=== PATIENT | male | born 1960 | race Caucasian/White ===

== ENCOUNTER → 2016-09-15 | Outpatient (CLI) | payer BC ==
[~2016-09-15] MED LIST: ADVIN25050 INH; ADVIN50/60 INH; ALBINS INH; ALBU18002 PO; ALBUAER INH; AMT50 PO; AZIT250T PO; DOXY-300 PO; FLNIN; GFNSR600 PO; LEVO1TAB35 PO; NRN600 PO; OMEP20TA74 PO; OXGN; PRED20TA PO; PRLSR20 PO; ROFL1TAB5 PO; SNG10 PO; TIOTCAP INH
--- NOTE | 2016-09-15 10:47 | DIAGNOSTIC IMAGING REPORT ---
MRI LUMBAR SPINE W/O CONTRAST CLINICAL HISTORY: Back pain with right leg radiculopathy. TECHNIQUE: Sagittal and axial T1, T2 and STIR images were obtained. Imaging was performed of 0.7 Sydnee open MRI scanner. COMPARISON STUDY: Conventional radiographic evaluation the lumbar spine dated 07/02/2016 OBSERVATIONS: The vertebral bodies and posterior elements appear intact. There is no abnormal bony signal present to suggest a marrow replacement process. L1-2: No disc protrusions or extrusions. No evidence of spinal canal or neural foraminal compromise. L2-3: No disc protrusions or extrusions. No evidence of spinal canal or neural foraminal compromise. L3-4: No disc protrusions or extrusions. No evidence of spinal canal or neural foraminal compromise. L4-5: There is a minimal circumferential disc bulge. There is no significant spinal foraminal stenosis L5-S1: There is a mild circumferential disc bulge. There is no significant spinal or foraminal stenosis. There is a right-sided perineural cyst. The conus medullaris and cauda equina appear normal. IMPRESSION: 1. No focal disc herniations identified. No evidence of significant spinal or foraminal stenosis 2. 1 cm right-sided perineural cyst at the S1 level Electronically signed by: Adan Chambers M.D. 09/15/2016 10:46 AM Dictated Date/Time: 09/15/2016 10:42 AM
== END | disposition home or self-care (01) ==
LOC: C.OPENMRI 08:53
DX: M54.16 Radiculopathy, lumbar region (principal); R20.9 Unspecified disturbances of skin sensation

== ENCOUNTER 2016-10-13 15:32 | Inpatient (IN) | payer BC ==
[~2016-10-13] VITALS: Ht 177.8 cm; Wt 123.6 kg
[~2016-10-13 15:32] MED LIST changes: -ADVIN50/60 INH; -ALBU18002 PO; -AMT50 PO; -AZIT250T PO; -DOXY-300 PO; -LEVO1TAB35 PO; -NRN600 PO; -OMEP20TA74 PO; -OXGN; -ROFL1TAB5 PO
[2016-10-13] MEDS ORDERED: METHYLPREDNISOLONE 125 MG VIAL IV STA (15:48)
--- NOTE | 2016-10-13 15:53 | EMERGENCY ROOM VISIT NOTE ---
History Report prepared by Roman: Luigi Ontiveros Under the Supervision of: Dr. Irwin Cheng M.D. First contact with patient: 15:44 Chief Complaint: SHORTNESS OF BREATH Stated Complaint: SHORTNESS OF BREATH History of Present Illness The patient is a 55 year old male with a history of COPD who presents to the Emergency Room with complaints of worsening shortness of breath that started a few days ago. He also complains of coughing, sweats, chills, hot flashes, and weakness. He was on Azithromycin, but recently was switched to Doxycycline, but it hasn't been helping either. He is an ex-smoker. The patient does not use BiPAP at home, but he has been using albuterol and nebulizer treatments. He denies any chest pain or leg swelling. The patient has not had any recent long car trips. His shortness of breath is better when sitting up. He has no history of blood clots. Source of History: patient Onset: A few days ago Position: other (global - sob) Timing: worsening Modifying Factors (Relieving): other (sitting up) Associated Symptoms: + chills, + cough, + diaphoresis, + weakness, No chest pain Note: Associated symptoms: Hot flashes. Denies leg swelling. Review of Systems See HPI for pertinent positives & negatives. A total of 10 systems reviewed and were otherwise negative. Past Medical & Surgical Medical Problems: (1) COPD (chronic obstructive pulmonary disease) Family History No pertinent family history Social History Smoking Status: Former Smoker Marital Status: Housing Status: lives with family Occupation Status: employed Current/Historical Medications Scheduled Amitriptyline Hcl (Elavil), 50 MG PO HS Fluticasone Prop/Salmeterol (Advair Diskus 500/50 60 Dose), 1 PUFF INH BID Gabapentin (Gabapentin), 600 MG PO DAILY Omeprazole (Ra Omeprazole), 20 MG PO DAILY Oxygen (Oxygen), 3 LITERS NA HS Prednisone (Prednisone), 20 MG PO DIRECTED Roflumilast (Daliresp), 500 MG PO HS Scheduled PRN Albuterol Sulfate (Proair Respiclick), 1 PUFF PO DIRECTED PRN for RESCUE Azithromycin (Zithromax), 250 MG PO 3XWK PRN for RESCUE Doxycycline (Monohydrate) (Doxycycline), 100 MG PO BID PRN for RESCUE Allergies Coded Allergies: Penicillins (Verified Allergy, Severe, Anaphylactic shock, 10/13/16) Physical Exam Vital Signs Date Time Temp Pulse Resp B/P Pulse Ox O2 Delivery O2 Flow Rate FiO2 10/13/16 17:27 108 20 10/13/16 17:22 108 19 10/13/16 17:17 110 17 97 10/13/16 17:12 110 20 99 10/13/16 17:07 110 21 96 10/13/16 17:02 107 14 95 10/13/16 17:00 114/80 10/13/16 16:57 107 18 96 10/13/16 16:52 110 21 96 BiPAP 10/13/16 16:37 104 15 96 BiPAP 10/13/16 16:30 146/104 96 BiPAP 10/13/16 16:22 106 14 98 BiPAP 10/13/16 16:07 105 13 97 BiPAP 10/13/16 16:05 110 98 50 10/13/16 16:05 110 18 98 BiPAP/CPAP 50 10/13/16 16:02 106 14 97 BiPAP 10/13/16 16:00 132/91 10/13/16 15:57 106 21 87 Room Air 10/13/16 15:52 105 18 90 Room Air 10/13/16 15:50 103 10/13/16 15:49 88 Room Air 10/13/16 15:49 88 Room Air 10/13/16 15:48 124/97 10/13/16 15:40 36.6 111 20 120/77 89 Room Air Physical Exam GENERAL: Patient is severely dyspneic appearing and unable to speak longer than short sentences. HEENT: No acute trauma, normocephalic atraumatic, mucous membranes moist, no nasal congestion, no scleral icterus. NECK: No stridor, no adenopathy, no meningismus, trachea is midline. LUNGS: Very tight lung sounds with diffuse wheezing. HEART: Regular rate and rhythm. No murmurs, rubs, gallops appreciated. ABDOMEN: Soft, nontender, bowel sounds positive, no masses appreciated, no peritonitis. BACK: No midline tenderness, no CVA tenderness EXTREMITIES: Normal motion all extremities, no cyanosis, no edema. NEUROLOGIC: Alert and oriented, no acute motor or sensory deficits, no focal weakness, cranial nerves grossly intact. SKIN: No rash, no jaundice, no diaphoresis. Medical Decision & Procedures ER Provider Diagnostic Interpretation: X ray results are stated below per my interpretation and the radiologist's interpretation. CHEST ONE VIEW PORTABLE CLINICAL HISTORY: [facility] dyspnea COMPARISON STUDY: 11/01/2012 FINDINGS: Mild bibasilar parenchymal infiltrates . Mid and upper lungs are considered clear. Chronic fibrotic filter changer the pulmonary disease. IMPRESSION: Emphysematous change with mild bibasilar infiltrative change. Atypical components of congestive failure may be present in similar fashion Electronically signed by: Craig Bryan M.D. 10/13/2016 4:37 PM Dictated Date/Time: 10/13/2016 4:36 PM Laboratory Results 10/13/16 15:58 Red Blood Count 5.58, Mean Corpuscular Volume 90.7, Mean Corpuscular Hemoglobin 31.4, Mean Corpuscular Hemoglobin Concent 34.6, Mean Platelet Volume 11.7, Neutrophils (%) (Auto) 59.0, Lymphocytes (%) (Auto) 20.2, Monocytes (%) (Auto) 18.1, Eosinophils (%) (Auto) 2.2, Basophils (%) (Auto) 0.3, Neutrophils # (Auto ) 3.74, Lymphocytes # (Auto) 1.28, Monocytes # (Auto) 1.15, Eosinophils # (Auto ) 0.14, Basophils # (Auto) 0.02 10/13/16 15:58 Test 10/13/16 15:58 10/13/16 16:08 White Blood Count 6.34 K/uL (4.8-10.8) Red Blood Count 5.58 M/uL (4.7-6.1) Hemoglobin 17.5 g/dL (14.0-18.0) Hematocrit 50.6 % (42-52) Mean Corpuscular Volume 90.7 fL (80-100) Mean Corpuscular Hemoglobin 31.4 pg (25-34) Mean Corpuscular Hemoglobin Concent 34.6 g/dl (32-36) Platelet Count 126 K/uL (130-400) Mean Platelet Volume 11.7 fL (7.4-10.4) Neutrophils (%) (Auto) 59.0 % Lymphocytes (%) (Auto) 20.2 % Monocytes (%) (Auto) 18.1 % Eosinophils (%) (Auto) 2.2 % Basophils (%) (Auto) 0.3 % Neutrophils # (Auto) 3.74 K/uL (1.4-6.5) Lymphocytes # (Auto) 1.28 K/uL (1.2-3.4) Monocytes # (Auto) 1.15 K/uL (0.11-0.59) Eosinophils # (Auto) 0.14 K/uL (0-0.5) Basophils # (Auto) 0.02 K/uL (0-0.2) RDW Standard Deviation 45.6 fL (36.4-46.3) RDW Coefficient of Variation 13.7 % (11.5-14.5) Immature Granulocyte % (Auto) 0.2 % Immature Granulocyte # (Auto) 0.01 K/uL (0.00-0.02) Prothrombin Time 11.1 SECONDS (9.0-12.0) Prothromb Time International Ratio 1.0 (0.9-1.1) Activated Partial Thromboplast Time 32.0 SECONDS (21.0-31.0) Partial Thromboplastin Ratio 1.2 Anion Gap 10.0 mmol/L (3-11) Est Creatinine Clear Calc Drug Dose 135.4 ml/min Estimated GFR () 114.9 Estimated GFR (Non- 99.2 BUN/Creatinine Ratio 16.3 (10-20) Calcium Level 9.1 mg/dl (8.5-10.1) Total Creatine Kinase 91 U/L (39-308) Creatine Kinase MB 0.6 ng/ml (0.5-3.6) Creatine Kinase MB Ratio 0.7 (0-3.0) Troponin I < 0.015 ng/ml (0-0.045) Chemistry Specimen Hemolysis Venous Blood pH 7.43 (7.36-7.41) Venous Blood Partial Pressure CO2 44 mmHg (38.0-50.0) Venous Blood Partial Pressure O2 110 mmHg Venous Blood HCO3 28 mmol/L Venous Blood Oxygen Saturation 98.2 % Venous Blood Base Excess 3.3 mmol/L Laboratory results as reviewed by me. Medications Administered Medications (Trade) Dose Ordered Sig/Cole Route Start Time Stop Time Status Last Admin Dose Admin Albuterol/ Ipratropium (Duoneb) 12 ml ONE ONCE INH 10/13/16 16:00 10/13/16 16:01 DC 10/13/16 16:05 12 ML Methylprednisolone Sodium Succinate (Solu-Medrol IV) 125 mg NOW STAT IV 10/13/16 15:48 10/13/16 15:50 DC 10/13/16 16:06 125 MG Levofloxacin (Levaquin / D5W) 750 mg NOW STAT IV 10/13/16 16:58 10/13/16 16:59 DC 10/13/16 17:10 750 MG ECG Indication: SOB/dyspnea Rate (beats per minute): 104 Rhythm: sinus tachycardia Findings: no acute ischemic change, no ectopy ED Course 1544: The patient was evaluated in room A10. A complete history and physical exam was performed. 1548: Ordered Solu-Medrol IV 125 mg IV. 1600: Ordered Duoneb 12 ml INH. 1649: Upon reevaluation, the patient is feeling better on BiPAP, and has much improved air flow to his lungs, but his wheezing has increased. Discussed results and treatment plan with the patient. He verbalized understanding and agreement with the treatment plan. The patient will be evaluated for further management. I am paging Gabriela Veleztany. 1657: I discussed the patient with Dr. Pan SHELBY hospitalist - he will evaluate the patient for further treatment. Medical Decision Differential: Infectious, Reactive Airway Disease, Pneumonia, Pneumothorax, COPD , CHF, ACS, Pulmonary Embolism, MSK, GI, Dissection, amongst other etiologies entertained. 55 yr old male with long history of COPD arrives severely SHOB in significant distress. He is having significantly difficulty catching breath. He was immediately started on BiPAP, continuous neb, IV steroids. He has questionable pneumonia and thus will start on ABX. No evidence of cardiac involvement nor dissection. He is not acidotic and is doing quite well on BiPAP. After hour he is breathing improved though still requiring BiPAP. Stable throughout. Will need to come in for further work-up and evaluation. Consults Time Called: 1649 Consulting Physician: Dr. Pan SHELBY hospitalist Returned Call: 1657 I discussed the patient with Dr. Pan SHELBY hospitalist - he will evaluate the patient for further treatment. Impression Primary Impression: COPD exacerbation Additional Impressions: Respiratory failure PNA (pneumonia) Critical Care I have personally spent greater than 35 minutes of critical care time in the direct management of this patient. This was a life/limb threatening event. This includes time spent evaluating patient, direct bedside care, chart review, placing orders, interpretation of diagnostic studies, discussion with consultants, patient, and family members, as well as other required patient management activities. This 35 minutes is in excess of all separately billable procedures. Scribe Attestation The scribe's documentation has been prepared under my direction and personally reviewed by me in its entirety. I confirm that the note above accurately reflects all work, treatment, procedures, and medical decision making performed by me. Departure Information Dispostion Being Evaluated By Hospitalist Roque Bermudez Jr,D.O. (PCP) Patient Instructions My [facility] Problem Qualifiers Additional Impressions: Respiratory failure Chronicity: acute Respiratory failure complication: hypoxia Qualified Codes : J96.01 - Acute respiratory failure with hypoxia PNA (pneumonia) Pneumonia type: due to unspecified organism Laterality: unspecified laterality Lung location: unspecified part of lung Qualified Codes: J18.9 - Pneumonia, unspecified organism
[2016-10-13] MEDS ORDERED: ALBUT/IPRATROP 3MG/0.5MG NEB 3 ML VIAL INH ONE (16:00)
[2016-10-13 16:05] VITALS: PULSE 110; O2SAT 98
[2016-10-13 16:19] LABS: BASO % 0.3 %; BASO ABS # 0.02 K/uL (0-0.2); COMPLETE YES; EOS % 2.2 %; HEMATOCRIT 50.6 % (42-52); IG% 0.2 %; LYMPH % 20.2 %; LYMPH ABS # 1.28 K/uL (1.2-3.4); MEAN CELL VOLUME 90.7 fL (80-100); MEAN CORPUSCULAR HEMOGLOBIN 31.4 pg (25-34); MEAN CORPUSCULAR HGB CONC 34.6 g/dl (32-36); MEAN PLATELET VOLUME 11.7 fL (7.4-10.4); MONO % 18.1 %; PLATELET COUNT 126 K/uL (130-400); RED BLOOD COUNT 5.58 M/uL (4.7-6.1); WHITE BLOOD COUNT 6.34 K/uL (4.8-10.8)
[2016-10-13] MEDS ORDERED: DOXY-300 PO (16:21)
[2016-10-13] MEDS ORDERED: NRN600 PO (16:21)
[2016-10-13] MEDS ORDERED: AMT50 PO (16:21)
[2016-10-13] MEDS ORDERED: ALBU18002 PO (16:21)
[2016-10-13] MEDS ORDERED: PRED20TA PO (16:21)
[2016-10-13] MEDS ORDERED: AZIT250T PO (16:21)
[2016-10-13] MEDS ORDERED: OXGN (16:21)
[2016-10-13] MEDS ORDERED: ADVIN50/60 INH (16:21)
[2016-10-13] MEDS ORDERED: ROFL1TAB5 PO (16:21)
[2016-10-13] MEDS ORDERED: OMEP20TA74 PO (16:21)
[2016-10-13 16:22] LABS: VEN BLD GAS O2 SATURATION 98.2 %; VEN BLOOD GAS BASE EXCESS 3.3 mmol/L
--- NOTE | 2016-10-13 16:38 | DIAGNOSTIC IMAGING REPORT ---
CHEST ONE VIEW PORTABLE CLINICAL HISTORY: [facility] dyspnea COMPARISON STUDY: 11/01/2012 FINDINGS: Mild bibasilar parenchymal infiltrates . Mid and upper lungs are considered clear. Chronic fibrotic change management manager the pulmonary disease. IMPRESSION: Emphysematous change with mild bibasilar infiltrative change. Atypical components of congestive failure may be present in similar fashion Electronically signed by: Craig Bryan M.D. 10/13/2016 4:37 PM Dictated Date/Time: 10/13/2016 4:36 PM
[2016-10-13 16:42] LABS: BLOOD UREA NITROGEN 13 mg/dl (7-18); BUN/CREATININE RATIO 16.3 (10-20); CALCIUM 9.1 mg/dl (8.5-10.1); CARBON DIOXIDE 27 mmol/L (21-32); CHLORIDE 105 mmol/L (98-107); CKMB/CK RATIO 0.7 (0-3.0); GLUCOSE 101 mg/dl (70-99); POTASSIUM 3.5 mmol/L (3.5-5.1); SODIUM 142 mmol/L (136-145)
[2016-10-13] MEDS ORDERED: LEVAQUIN 750MG / 150ML D5W IV STA (16:58)
[2016-10-13] MEDS ORDERED: ONDANSETRON INJ 2 MG/ML 2 ML VIAL IV PRN (17:30)
[2016-10-13] MEDS ORDERED: ACETAMINOPHEN 325 MG TAB PO PRN (17:30)
[2016-10-13] MEDS ORDERED: ALUMINUM/MAGNESIUM/SIMETH (MAALOX MAX) 30 ML UDC PO PRN (17:30)
[2016-10-13 18:02] LABS: PARTIAL THROMBOPLASTIN RATIO 1.2; PROTHROMBIN TIME (PATIENT) 11.1 SECONDS (9.0-12.0)
--- NOTE | 2016-10-13 18:42 | History and Physical ---
History & Physical Date & Time of Service: Oct 13, 2016 at 18:34 Chief Complaint: Shortness Of Breath Primary Care Physician: Roque Marie Jr,D.O. History of Present Illness Source: patient Pt is a 55 yo male with a hx of COPD who presents to the ER with complaints of worsening SOB that started a few days ago. He reports dyspnea on rest and exertion and also cough and general malaise. Pt has been on chronic azithromycin for recurrent URI for past yr, and reports he is given doxycycline to take when infections are severe. He reports no relief with these antibx in past few days. Denies any fevers or chills. 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 No further medical hx. Pt was a ppd smoker but quit 20 yrs ago. He denies any chest pain or leg swelling. The patient has not had any recent long car trips. His shortness of breath is better when sitting up. He has no history of blood clots. Past Medical/Surgical History Medical Problems: (1) COPD (chronic obstructive pulmonary disease) Status: Chronic Family History No pertinent family history Social History Smoking Status: Former Smoker Smokeless Tobacco Use: No Drug Use: none Marital Status: Occupational Status: employed Immunizations History of Influenza Vaccine: No History of Tetanus Vaccine?: Unknown History of Pneumococcal: No History of Hepatitis B Vaccine: No Multi-Drug Resistant Organisms History of MDRO: No Allergies Coded Allergies: Penicillins (Verified Allergy, Severe, Anaphylactic shock, 10/13/16) Home Medications Scheduled Amitriptyline Hcl (Elavil), 50 MG PO HS Fluticasone Prop/Salmeterol (Advair Diskus 500/50 60 Dose), 1 PUFF INH BID Gabapentin (Gabapentin), 600 MG PO DAILY Omeprazole (Ra Omeprazole), 20 MG PO DAILY Oxygen (Oxygen), 3 LITERS NA HS Prednisone (Prednisone), 20 MG PO DIRECTED Roflumilast (Daliresp), 500 MG PO HS Scheduled PRN Albuterol Sulfate (Proair Respiclick), 1 PUFF PO DIRECTED PRN for RESCUE Azithromycin (Zithromax), 250 MG PO 3XWK PRN for RESCUE Doxycycline (Monohydrate) (Doxycycline), 100 MG PO BID PRN for RESCUE Review of Systems Constitutional: + fatigue, + weakness, No chills, No fever Respiratory: + cough, + dyspnea on exertion, + shortness of breath, + sputum, + wheezing Cardiovascular: No chest pain, No edema, No orthopnea Abdomen: No diarrhea, No nausea, No pain, No vomiting Musculoskeletal: No joint pain, No muscle pain Genitourinary - Male: No dysuria, No hematuria, No urinary frequency Psychiatric: No anhedonism, No depression symptoms Allergic / Immunologic: + environmental allergies, + seasonal allergies Physical Exam Vital Signs Date Time Temp Pulse Resp B/P Pulse Ox O2 Delivery O2 Flow Rate FiO2 10/13/16 16:52 110 21 96 BiPAP 10/13/16 16:37 104 15 96 BiPAP 10/13/16 16:30 146/104 96 BiPAP 10/13/16 16:22 106 14 98 BiPAP 10/13/16 16:07 105 13 97 BiPAP 10/13/16 16:05 110 98 50 10/13/16 16:05 110 18 98 BiPAP/CPAP 50 10/13/16 16:02 106 14 97 BiPAP 10/13/16 16:00 132/91 10/13/16 15:57 106 21 87 Room Air 10/13/16 15:52 105 18 90 Room Air 10/13/16 15:50 103 10/13/16 15:49 88 Room Air 10/13/16 15:49 88 Room Air 10/13/16 15:48 124/97 10/13/16 15:40 36.6 111 20 120/77 89 Room Air General Appearance: WD/WN, + mild distress, + obese Eyes: normal inspection, PERRL Neck: supple, no adenopathy Respiratory/Chest: + decreased breath sounds, + wheezing Cardiovascular: no gallop, no JVD Abdomen/GI: non tender, soft Neurologic/Psych: alert, normal mood/affect, oriented x 3 Diagnostics Laboratory Results Results Past 24 Hours Test 10/13/16 15:58 10/13/16 16:08 Range/Units White Blood Count 6.34 4.8-10.8 K/uL Red Blood Count 5.58 4.7-6.1 M/uL Hemoglobin 17.5 14.0-18.0 g/dL Hematocrit 50.6 42-52 % Mean Corpuscular Volume 90.7 80-100 fL Mean Corpuscular Hemoglobin 31.4 25-34 pg Mean Corpuscular Hemoglobin Concent 34.6 32-36 g/dl Platelet Count 126 130-400 K/uL Mean Platelet Volume 11.7 7.4-10.4 fL Neutrophils (%) (Auto) 59.0 % Lymphocytes (%) (Auto) 20.2 % Monocytes (%) (Auto) 18.1 % Eosinophils (%) (Auto) 2.2 % Basophils (%) (Auto) 0.3 % Neutrophils # (Auto) 3.74 1.4-6.5 K/uL Lymphocytes # (Auto) 1.28 1.2-3.4 K/uL Monocytes # (Auto) 1.15 0.11-0.59 K/uL Eosinophils # (Auto) 0.14 0-0.5 K/uL Basophils # (Auto) 0.02 0-0.2 K/uL RDW Standard Deviation 45.6 36.4-46.3 fL RDW Coefficient of Variation 13.7 11.5-14.5 % Immature Granulocyte % (Auto) 0.2 % Immature Granulocyte # (Auto) 0.01 0.00-0.02 K/uL Prothrombin Time 11.1 9.0-12.0 SECONDS Prothromb Time International Ratio 1.0 0.9-1.1 Activated Partial Thromboplast Time 32.0 21.0-31.0 SECONDS Partial Thromboplastin Ratio 1.2 Sodium Level 142 136-145 mmol/L Potassium Level 3.5 3.5-5.1 mmol/L Chloride Level 105 98-107 mmol/L Carbon Dioxide Level 27 21-32 mmol/L Anion Gap 10.0 3-11 mmol/L Blood Urea Nitrogen 13 7-18 mg/dl Creatinine 0.80 0.60-1.40 mg/dl Est Creatinine Clear Calc Drug Dose 135.4 ml/min Estimated GFR () 114.9 Estimated GFR (Non- 99.2 BUN/Creatinine Ratio 16.3 10-20 Random Glucose 101 70-99 mg/dl Calcium Level 9.1 8.5-10.1 mg/dl Total Creatine Kinase 91 39-308 U/L Creatine Kinase MB 0.6 0.5-3.6 ng/ml Creatine Kinase MB Ratio 0.7 0-3.0 Troponin I < 0.015 0-0.045 ng/ml Chemistry Specimen Hemolysis Venous Blood pH 7.43 7.36-7.41 Venous Blood Partial Pressure CO2 44 38.0-50.0 mmHg Venous Blood Partial Pressure O2 110 mmHg Venous Blood HCO3 28 mmol/L Venous Blood Oxygen Saturation 98.2 % Venous Blood Base Excess 3.3 mmol/L Microbiology Results 10/13/16 Blood Culture, Received Pending 10/13/16 Blood Culture, Received Pending Impression Assessment and Plan Pt is a 55 yo male with hx of COPD who presents with worsening sob x 3 days COPD exacerbation - Pt was on BiPAP in ER but VBG and O2 sats normalizing. Can likely wean off shortly. Cont advair and daliresp and duonebs at this time. Will also start on IV solumedrol 60 mg q 8 hrs. CXR bibasilar infiltrates noted, will also start on levaquin 750 mg IV daily. Pt report PFTs in past month. Lumbar radiculopathy - Cont gabapentin Hx of seasonal Allergies Pt is FULL CODE VTE Prophylaxis VTE Risk Assessment Done? Y/N: Yes Risk Level: Moderate
[2016-10-13 19:52] VITALS: Ht 177.8 cm; Wt 123.6 kg
[2016-10-13 19:54] VITALS: BP 133/85; PULSE 77; TEMP 36.5; O2SAT 94
[2016-10-13] MEDS ORDERED: PNEUMOCOCCAL POLYSACCHARIDES 25 MCG/0.5 ML VIAL/SYR IM. ONE (20:15)
[2016-10-13] MEDS ORDERED: PNEUMOCOCCAL ADMINISTRATION CHARGE ONE (20:15)
[2016-10-13] MEDS ORDERED: INFLUENZA VIRUS QUAD VACCINE 0.5 ML SYR IM. ONE (20:15)
[2016-10-13] MEDS ORDERED: INFLUENZA ADMINISTRATION CHARGE ONE (20:15)
[2016-10-13 20:28] VITALS: PULSE 102; O2SAT 92
[2016-10-13] MEDS: ALBUT/IPRATROP 3MG/0.5MG NEB 3 ML VIAL INH SCH (20:28)
[2016-10-13] MEDS: ENOXAPARIN 40 MG/0.4 ML SYR SC SCH (22:27)
[2016-10-13] MEDS: METHYLPREDNISOLONE IV 60 MG in SYRINGE 0 ML IV SCH (22:27)
[2016-10-13] MEDS: ROFLUMILAST 500 MCG TAB PO SCH (22:27)
[2016-10-13] MEDS: AMITRIPTYLINE HCL 50 MG TAB PO SCH (22:28)
[2016-10-13] MEDS: FLUTICASONE/SALMETEROL (ADVAIR) 500/50 INH 14 PUFF INH SCH (22:29)
[2016-10-13 23:42] VITALS: BP 143/85; PULSE 105; TEMP 36.6; O2SAT 91
[2016-10-14] VITALS (12 sets, daily range): BP systolic 115–159; BP diastolic 67–80; PULSE 81–103; TEMP 36.5–37.2; O2SAT 90–94
[2016-10-14] MEDS: METHYLPREDNISOLONE IV 60 MG in SYRINGE 0 ML IV SCH ×3 (06:35→21:08)
[2016-10-14] MEDS: ALBUT/IPRATROP 3MG/0.5MG NEB 3 ML VIAL INH SCH ×4 (07:24→19:36)
--- NOTE | 2016-10-14 07:36 | Family Medicine Progress Note ---
Progress Note Date of Service Oct 14, 2016. Subjective Pt evaluation today including: conversation w/ patient, physical exam, chart review, lab review The patient was seen and examined at bedside. No acute overnight events. Telemetry monitoring showed sinus rhythm in the 80s and 90s. Patient is resting comfortably in bed. Pt is coughing up yellow sputum - this is normal for the pt - pt states that he has had numerous COPD exacerbations over the past few years. 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 Pt has PRN prednisone tabs at home because he has such frequent COPD exacerbation. Considers current exacerbation as "moderate". Pt ate his entire breakfast. ROS: Pt denies fever, hemoptysis, chest pain, SOB, leg swelling, abdominal pain , diarrhea. Plan of care was described to the patient and all questions were answered. Objective Physical Exam General Appearance: WD/WN, no apparent distress, + obese Respiratory/Chest: + pertinent finding (bibasilar crackles in the posterior lung ribeiro, expiratory wheezing in the apical lung ribeiro posteriorly and bilaterally, minimally decreased air movement cosnsistent with mild to moderate COPD. ) Cardiovascular: regular rate, rhythm, no edema, no gallop, no JVD, no murmur Abdomen: normal bowel sounds, non tender, soft, no pulsatile mass Extremities: normal range of motion, non-tender, normal inspection, no pedal edema, no calf tenderness Assessment and Plan Pt is a 55 yo male with hx of COPD who presents with worsening sob x 3 days. Pt takes prophylactic Azithromycin at home (Doxycycline when he's feeling really bad) and has PRN Prednisone (will taper up to 20mg daily and then taper back down). Pt is admitted for COPD exacerbation. COPD exacerbation - O2 sat 94% on 2LNC. Pt feels like he is improving clinically. He routinely wears home oxygen at night. - Pt was on BiPAP in ER but VBG and O2 sats normalizing. - Cont advair and daliresp and duonebs at this time. - c/w IV solumedrol 60 mg q 8hrs. CXR bibasilar infiltrates noted, - c/w levaquin 750 mg IV daily. Lumbar radiculopathy - c/w gabapentin 600mg daily. Mood: c/w Amitriptyline DVT Proph: Lovenox SQ Daily Dispo: Med Surg, regular diet, FULL CODE Resident Physician Supervision Note: I interviewed and examined the patient. Discussed with Dr. Raymond and agree with findings and plan as documented in the note. Any exceptions or clarifications are listed here: None Documented By: Gregorio Gunter feeling better, breathing better vitals noted, nad, breathing unlabored COPD exacerbation due to pneumonia - levaquin, steroids, supportive care improving otehrwise as above Resident Involvement: Resident Care Provided Care Provided: Adult Hospital Medicine
[2016-10-14] MEDS: FLUTICASONE/SALMETEROL (ADVAIR) 500/50 INH 14 PUFF INH SCH (08:07)
[2016-10-14] MEDS: PANTOprazole SOD 40 MG TAB PO SCH (08:08)
[2016-10-14] MEDS: GABAPENTIN 600 MG TAB PO SCH (08:08)
[2016-10-14] MEDS ORDERED: LEVOFLOXACIN / D5W 750 MG in PREMIXED IN D5W 150 ML IV SCH (16:00)
--- NOTE | 2016-10-14 17:33 | Medical Student: [facility] ---
Med Student Progress Note Date of Service Oct 14, 2016. Subjective Pt evaluation today including: conversation w/ patient Voiding: no voiding problems Mr. Avilez is a 55 year old male with past medical history significant for COPD being treated for shortness of breath. Diagnosed with COPD 15 years ago. On daily azithromycin and uses oxygen via nasal canula at night. Notes last hospitalized exacerbation 3-4 years ago. States last PFTs were 'poor'. Currently does not see dairy associate, only follows with allergy. Per nurse no acute events overnight. Today patient states he is feeling better. Notes shortness of breath improved with oxygen 2 L via nasal cannula. He notes no change in productive cough or in large sputum volume. Notes yellow, green, thick appearance with flecks of blood. Denies fever, chills, chest pain, palpitations, lightheadedness, nausea, vomiting. Review of Systems Constitutional: No chills, No fatigue, No fever, No sweats Respiratory: + cough, + shortness of breath, + sputum, No wheezing Cardiac: No chest pain, No palpitations Abdomen: No diarrhea, No nausea, No pain, No vomiting Musculoskeletal: No calf pain, No swelling Male : No dysuria, No urinary frequency Objective Vital Signs Date Time Temp Pulse Resp B/P Pulse Ox O2 Delivery O2 Flow Rate FiO2 10/14/16 16:00 94 Nasal Cannula 2.0 10/14/16 15:56 37.2 101 16 120/71 94 Nasal Cannula 3.0 10/14/16 15:34 103 18 93 Nasal Cannula 2.0 10/14/16 12:00 92 Nasal Cannula 2.0 10/14/16 11:58 101 18 92 Nasal Cannula 2.0 10/14/16 11:25 36.7 99 18 121/77 92 2.0 10/14/16 08:00 94 Nasal Cannula 2.0 10/14/16 07:24 88 18 94 Nasal Cannula 2.0 10/14/16 07:24 36.5 81 16 115/69 93 Nasal Cannula 2.0 10/14/16 04:00 94 Nasal Cannula 2.0 10/14/16 03:47 36.5 97 16 140/67 94 Room Air 10/13/16 23:42 36.6 105 18 143/85 91 Room Air 10/13/16 21:52 36.5 102 18 92 Nasal Cannula 2.0 50 10/13/16 20:28 102 18 92 Nasal Cannula 2.0 10/13/16 19:54 36.5 77 16 133/85 94 10/13/16 19:52 Nasal Cannula 2.0 10/13/16 18:54 36.6 109 13 123/72 98 10/13/16 18:47 109 13 10/13/16 18:42 105 18 10/13/16 18:37 105 22 10/13/16 18:32 107 19 10/13/16 18:30 123/72 98 BiPAP 10/13/16 18:27 107 15 10/13/16 18:22 108 18 10/13/16 18:17 106 18 10/13/16 18:12 109 12 10/13/16 18:07 109 15 10/13/16 18:02 107 17 10/13/16 18:00 130/90 10/13/16 17:57 107 12 10/13/16 17:52 106 20 10/13/16 17:47 109 13 10/13/16 17:42 110 20 10/13/16 17:37 106 15 10/13/16 17:32 107 14 10/13/16 17:29 122/95 10/13/16 17:27 108 20 10/13/16 17:22 108 19 10/13/16 17:17 110 17 97 10/13/16 17:12 110 20 99 Physical Exam General Appearance: WD/WN, + mild distress Neck: supple, no adenopathy, no JVD, no carotid bruits Respiratory/Chest: chest non-tender, no respiratory distress, no accessory muscle use, + crackles (diffuse bibasilar), + wheezing (diffuse bibasilar) Cardiovascular: regular rate, rhythm, no edema, no gallop, no JVD Abdomen: normal bowel sounds, non tender, soft, no organomegaly Extremities: no pedal edema, no calf tenderness Neurologic/Psychiatric: alert, normal mood/affect, oriented x 3 Laboratory Results Test 10/13/16 15:58 10/13/16 16:08 White Blood Count 6.34 Red Blood Count 5.58 Hemoglobin 17.5 Hematocrit 50.6 Mean Corpuscular Volume 90.7 Mean Corpuscular Hemoglobin 31.4 Mean Corpuscular Hemoglobin Concent 34.6 Platelet Count 126 Mean Platelet Volume 11.7 Neutrophils (%) (Auto) 59.0 Lymphocytes (%) (Auto) 20.2 Monocytes (%) (Auto) 18.1 Eosinophils (%) (Auto) 2.2 Basophils (%) (Auto) 0.3 Neutrophils # (Auto) 3.74 Lymphocytes # (Auto) 1.28 Monocytes # (Auto) 1.15 Eosinophils # (Auto) 0.14 Basophils # (Auto) 0.02 RDW Standard Deviation 45.6 RDW Coefficient of Variation 13.7 Immature Granulocyte % (Auto) 0.2 Immature Granulocyte # (Auto) 0.01 Prothrombin Time 11.1 Prothrombin Time INR 1.0 PTT 32.0 Partial Thromboplastin Ratio 1.2 Sodium Level 142 Potassium Level 3.5 Chloride Level 105 Carbon Dioxide Level 27 Anion Gap 10.0 Blood Urea Nitrogen 13 Creatinine 0.80 Est Creatinine Clear Calc Drug Dose 135.4 Estimated GFR () 114.9 Estimated GFR (Non- 99.2 BUN/Creatinine Ratio 16.3 Random Glucose 101 Calcium Level 9.1 Total Creatine Kinase 91 Creatine Kinase MB 0.6 Creatine Kinase MB Ratio 0.7 Troponin I < 0.015 Chemistry Specimen Hemolysis Venous Blood pH 7.43 Venous Blood Partial Pressure CO2 44 Venous Blood Partial Pressure O2 110 Venous Blood HCO3 28 Venous Blood Oxygen Saturation 98.2 Venous Blood Base Excess 3.3 Medications Current Inpatient Medications Medications (Trade) Dose Ordered Sig/Cole Route Start Time Stop Time Status Last Admin Dose Admin Enoxaparin Sodium (Lovenox Inj) 40 mg Q24H SC 10/13/16 21:00 11/12/16 20:59 10/13/16 22:27 40 MG Acetaminophen (Tylenol Tab) 650 mg Q4H PRN PO 10/13/16 17:30 11/12/16 17:29 Al Hydrox/Mg Hydrox/Simethicone (Maalox Max Susp) 15 ml Q4H PRN PO 10/13/16 17:30 11/12/16 17:29 Ondansetron HCl 4 mg 4 mg Q6H PRN IV 10/13/16 17:30 11/12/16 17:29 Levofloxacin/Prmx (Levaquin / D5W/ Premixed D5W) 150 ml @ 100 mls/hr DAILY@1600 IV 10/14/16 16:00 10/23/16 15:59 10/14/16 16:50 100 MLS/HR Albuterol/ Ipratropium (Duoneb) 3 ml QIDR INH 10/13/16 20:00 11/12/16 19:59 10/14/16 15:28 3 ML Amitriptyline HCl (Elavil Tab) 50 mg HS PO 10/13/16 21:00 11/12/16 20:59 10/13/16 22:28 50 MG Salmeterol Xinafoate/ Fluticasone (Advair Diskus 500/50 Inh) 1 puff BID INH 10/13/16 21:00 11/12/16 20:59 10/14/16 08:07 1 PUFF Gabapentin (Neurontin Tab) 600 mg DAILY PO 10/14/16 09:00 11/13/16 08:59 10/14/16 08:08 600 MG Roflumilast (Daliresp Tab) 500 mcg HS PO 10/13/16 21:00 11/12/16 20:59 10/13/16 22:27 500 MCG Pantoprazole Sodium 40 mg 40 mg QAM PO 10/14/16 09:00 11/13/16 08:59 10/14/16 08:08 40 MG Methylprednisolone Sodium Succinate/ Syringe (Solu-Medrol IV/ Syringe) 0.96 ml @ 1.5 mls/min Q8 IV 10/13/16 22:00 11/12/16 21:59 10/14/16 15:16 1.5 MLS/MIN Assessment and Plan Assessment and Plan: Mr. Avilez is a 55 year old male with past medical history significant for COPD who is being treated for shortness of breath. 1. Shortness of breath - Likely COPD exacerbation due to history. Mild bibasilar infiltrates on CXR. Cough, shortness of breath, sputum production and purulence would support exacerbation. However no fever and WBC not elevated at 6.34. Blood cultures pending. - Obtain sputum culture - Treat underlying condition - Continue nebulizers, inhalers 2. Acute on chronic COPD - Last PFT values unknown. Per patient they were very poor. Increase in sputum production and purulence would support exacerbation. On daily azithromycin prophylaxis. Takes doxycycline when more severe. Likely exacerbation gram negative infection. Azithromycin and doxy would cover more gram positives, atypicals, possibly MRSA. - Continue Levaquin 750 mg IV. - Wean off oxygen. Monitor oxygen saturation. Aim for 88-92%. - Continue Advair, Roflumilast, DuoNeb - Coordinate pulmonology follow up 3. Lumbar radiculopathy - Saw neurosurgery in [place]. Cyst in lower back near spinal cord. [place] stated inoperable and referred to pain management. - Continue Amitriptyline and Gabapentin 4. DVT prophylaxis - Continue Lovenox 40 mg SQ q24
[2016-10-14] MEDS: ROFLUMILAST 500 MCG TAB PO SCH (21:07)
[2016-10-14] MEDS: AMITRIPTYLINE HCL 50 MG TAB PO SCH (21:07)
[2016-10-14] MEDS: ENOXAPARIN 40 MG/0.4 ML SYR SC SCH (21:08)
[2016-10-15 00:05] VITALS: BP 138/78; PULSE 95; TEMP 36.6; O2SAT 95
[2016-10-15] MEDS: METHYLPREDNISOLONE IV 60 MG in SYRINGE 0 ML IV SCH (06:30)
[2016-10-15 07:05] VITALS: PULSE 102; O2SAT 92
[2016-10-15] MEDS: ALBUT/IPRATROP 3MG/0.5MG NEB 3 ML VIAL INH SCH ×2 (07:05→11:21)
[2016-10-15 07:40] VITALS: BP 114/79; PULSE 93; TEMP 36; O2SAT 95
[2016-10-15] MEDS: PANTOprazole SOD 40 MG TAB PO SCH (08:18)
[2016-10-15] MEDS: GABAPENTIN 600 MG TAB PO SCH (08:18)
[2016-10-15] MEDS: FLUTICASONE/SALMETEROL (ADVAIR) 500/50 INH 14 PUFF INH SCH (08:22)
[2016-10-15] MEDS ORDERED: PRED20TA PO (09:53)
[2016-10-15] MEDS ORDERED: LEVO1TAB35 PO (09:54)
--- NOTE | 2016-10-15 10:03 | Discharge Instructions ---
Discharge Instructions Date of Service Oct 15, 2016. Admission Reason for Admission: Copd Exacerbation Discharge Discharge Diagnosis / Problem: COPD Exacerbation Discharge Goals Goal(s): Decrease discomfort, Improve function, Improve nutritional status, Learn about illness Activity Recommendations Activity Limitations: resume your previous activity Lifting Limitations: none . Instructions / Follow-Up Instructions / Follow-Up You will be arranged a follow up appointment with Dr. Conrad. Dr. Conrad's office or the hospital briefcase sewer will reach out to you with an appointment within the next 48 hours. If you do not hear from anyone regarding a pulmonology follow up by evening we recommend you reach out to Dr. Conrad independently to schedule a follow up within the next 7 days. We also recommend that you follow up with your PCP within the next 7 days. Medications You have been prescribed a 7 day course of Levofloxacin. We recommend taking this pill daily at 4pm. You should not take your Azithromycin or Doxycycline while taking the Levofloxacin. Once you finish your Levofloxacin you may resume your home antibiotics. You have also been prescribed a course of Prednisone. You received an injection of Solu Medrol the morning if your discharge. When you get home today we recommend that you take two 20mg tablets of Prednisone tonight (40mg total). Your taper will commence with 60mg (3 pills of 20mg) on , 60mg on Thursday, 40mg on Thursday, 40 mg on Thursday, 20 mg on Thursday, 20mg on Thursday. This is a total of 14 pills of 20mg each. We recommend 24hour use of your home oxygen until for at least the first 14 days after discharge. Your supervisor line department might advice you for further use after your first follow up appointment. If you experience any recurrence of your SOB we recommend you return to the ER. Current Hospital Diet Patient's current hospital diet: Regular Diet Discharge Diet Recommended Diet: AHA Diet (Heart Healthy) Pending Studies Studies pending at discharge: no Medical Emergencies . Who to Call and When: Medical Emergencies: If at any time you feel your situation is an emergency, please call 911 immediately. . Non-Emergent Contact Non-Emergency issues call your: Primary Care Provider, Transformer Maker . . "Provider Documentation" section prepared by Craig Raymond. VTE Core Measure Inpt VTE Proph given/why not?: Enoxaparin (Lovenox)SQ Resident Involvement: Resident Care Provided Care Provided: Adult Hospital Medicine
--- NOTE | 2016-10-15 10:15 | Discharge Summary ---
Discharge Summary Date of Service Oct 15, 2016. (Craig Raymond M.D.) Discharge Summary Admission Date: Oct 13, 2016 at 17:27 Discharge Date: Oct 15, 2016 Discharge Disposition: Home Principal Diagnosis: COPD Exacerbation Immunizations: Have You Had Influenza Vaccine: No History of Tetanus Vaccine?: Unknown History of Pneumococcal: No History of Hepatitis B Vaccine: No (Craig Raymond M.D.) Medication Reconciliation New Medications: Levofloxacin (Levaquin) 750 Mg Tab 750 MG PO DAILY for 7 Days, #7 TAB Take at 4pm starting today (Thursday) Changed Medications: Prednisone (Prednisone) 20 Mg Tab 20 MG PO DIRECTED, #14 TAB (Medication details modified) 40mg Thu evening 60mg 60mg Thu 40mg Sat 40mg Sun 20mg Mon 20mg Thu Continued Medications: Albuterol Sulfate (Proair Respiclick) 108 Mcg/Act Aer 1 PUFF PO DIRECTED PRN for RESCUE Amitriptyline Hcl (Elavil) 50 Mg Tab 50 MG PO HS, TAB Azithromycin (Zithromax) 250 Mg Tab 250 MG PO 3XWK PRN for RESCUE, TAB Doxycycline (Monohydrate) (Doxycycline) 100 Mg Cap 100 MG PO BID PRN for RESCUE Fluticasone Prop/Salmeterol (Advair Diskus 500/50 60 Dose) 1 Ea Aerp 1 PUFF INH BID, INHALER Gabapentin (Gabapentin) 600 Mg Tab 600 MG PO DAILY Omeprazole (Ra Omeprazole) 20 Mg Tab 20 MG PO DAILY Oxygen (Oxygen) Gas 3 LITERS NA HS Roflumilast (Daliresp) 500 Mcg Tab 500 MG PO HS, TAB 5 Refills Discharge Exam The patient was seen and examined at bedside. Patient is improving clinically. Says his dyspnea and cough have improved. Patient is resting comfortably in bed. Denies having any chest pain. Eating and urinating well. Plan of care was described to the patient and all questions were answered. Review of Systems: Constitutional: No chills, No fever, No weight loss Cardiovascular: No chest pain Abdomen: No diarrhea, No nausea, No pain, No vomiting Musculoskeletal: No joint pain Physical Exam: General Appearance: WD/WN, no apparent distress, + obese Neck: supple Respiratory/Chest: chest non-tender, lungs clear, normal breath sounds, no respiratory distress, + pertinent finding (Dramatically improved lung sounds in lung bases, slight bibasilar crackles, ) Cardiovascular: regular rate, rhythm, no edema, no gallop, no JVD, no murmur Abdomen / GI: normal bowel sounds, non tender, soft, no organomegaly Extremities: normal inspection, no calf tenderness, no pedal edema Neurologic/Psychiatric: drill operator II-XII nml as tested, alert, normal mood/affect , normal reflexes, oriented x 3 Skin: + pertinent finding (psoriatic skin patches over both elbows) (Craig Raymond M.D.) Hospital Course 55M with hx of COPD who presents with worsening SOB x 3 days. Pt takes prophylactic Azithromycin at home (Doxycycline when he's feeling really bad) and has PRN Prednisone (will taper up to 20mg daily and then taper back down in 5mg increments). Pt is admitted for COPD exacerbation. COPD exacerbation Patient improved clinically on Levofloxacin and IV solumedrol 60mg Q8. Patient was in the hospital for approximately 48 hours. He was discharged on a 7 day course of Levofloxacin and told to hold his home Abx while taking this medication. He was also discharged on a 6 day Prednisone taper from 60mg. We are arranging for follow up with a Home Security Alarm Installer and we are recommending regular use of home oxygen which the patient is only using at night. Patient is a former smoker. We also recommend regular use of home Advair. While in the hospital we continued the patient's Gabapentin which he takes for Lumbar radiculopathy and we continued his Amitriptyline. We also provided DVT Prophylaxis and a regular full diet. Total Time Spent: Greater than 30 minutes This includes examination of the patient, discharge planning, medication reconciliation, and communication with other providers. (Craig Raymond M.D.) Resident Physician Supervision Note: I interviewed and examined the patient. Discussed with Dr. Raymond and agree with findings and plan as documented in the note. Any exceptions or clarifications are listed here: None Documented By: Gregorio Gunter feeling better breathing better. at my arrival pulse ox checked - 87-89% on RA with absolutely no dyspnea (calm, smiling, joking, unlabored breathing) - notes he has O2, portable O2 and pulse ox at home - but mostly only uses O2 HS. discussed hypoxia and that he'd likely do much better keeping pulse ox >90, using O2 more. vitals noted, see EMR. nad, lungs quiet but clear no r/r/w COPD exacerbation w acute on chronic respiratory failure due to pneumonia superimposed on chronic severe COPD -finish levaquin, taper prednisone, set up w pulmonary for ongoing f/u at his request, f/u PCP, use O2 more keep pulse ox >90 -stable for home as above Total Time Spent: Less than 30 minutes (Gregorio Gunter D.Promise.) Discharge Instructions Please refer to the electronic Patient Visit Report (Discharge Instructions) for additional information. (Craig Raymond M.D.) Follow-Up Follow up with PCP within 7 days of discharge. Follow up with Home Security Alarm Installer (the human services case manager is reaching out to make an appointment with Dr. Conrad) within the next few days. (Craig Raymond M.D.) Additional Copies To Roque Marie Jr,D.O.; Odilon Conrad MD Resident Involvement: Resident Care Provided Care Provided: [facility] (Craig Raymond M.D.)
[2016-10-15 11:02] VITALS: BP 114/79; PULSE 93; TEMP 36; O2SAT 95
[2016-10-15 11:21] VITALS: PULSE 97; O2SAT 95
== END 2016-10-15 12:08 | disposition home or self-care (01) | DRG 190 ==
LOC: ENRESERVTM → ENRESERVDT → C.EDB 15:34 → C.MED 17:27 → C.4E 10-14 20:14
PROVIDERS: ADMIT Hospitalist; ATTEND Family Medicine
DX: J44.0 Chronic obstructive pulmonary disease with (acute) lower respiratory infection (principal); J18.9 Pneumonia, unspecified organism; J96.21 Acute and chronic respiratory failure with hypoxia; J44.1 Chronic obstructive pulmonary disease with (acute) exacerbation; Z87.891 Personal history of nicotine dependence; Z88.0 Allergy status to penicillin; M54.16 Radiculopathy, lumbar region

== ENCOUNTER 2018-03-11 12:14 | Emergency (ER) | payer OTHER ==
[~2018-03-11] VITALS: Ht 177.8 cm; Wt 132.0 kg
[~2018-03-11 12:14] MED LIST changes: -ADVIN25050 INH; +ADVIN50/60 INH; -ALBINS INH; +ALBU18002 PO; -ALBUAER INH; +AMT50 PO; +AZIT250T PO; +CYM/30 PO; +DOXY-300 PO; -FLNIN; +GABA-113 PO; -GFNSR600 PO; +OMEP20TA74 PO; +PHEN37.585 PO; -PRLSR20 PO; +ROFL1TAB5 PO; -SNG10 PO; -TIOTCAP INH; +TOPI25TA99 PO
[2018-03-11 12:18] VITALS: TEMP 36.6; Ht 177.8 cm; Wt 132.0 kg
[2018-03-11 12:31] VITALS: O2SAT 92
--- NOTE | 2018-03-11 12:51 | EMERGENCY ROOM VISIT NOTE ---
History Report prepared by Roman: Monserrat Maynard Under the Supervision of: Dr. Luis Felipe Valera M.D. First contact with patient: 12:31 Chief Complaint: RESPIRATORY PROBLEMS Stated Complaint: CANT BREATH History of Present Illness The patient is a 57 year old male who presents to the Emergency Room with complaints of waxing and waning shortness of breath since yesterday. The patient states this shortness of breath feels like a "tightness" all over his chest and it feels "dry and scratchy" in his lungs. He reports that these symptoms feel similar to symptoms he had 1.5 years ago when he came in and was diagnosed with pneumonia. Per the patient's , the patient gets short of breath when walking short distances. The patient states that more recently he has felt more tired and has had recent hot flashes. The patient states that he has had COPD for the past 7 years and is on 3L of oxygen at night. He states that he usually coughs up a large amount of thick fluid, but more recently he has been rarely coughing up any mucus but when he does, it is thin and greenish brown. The patient denies any abdominal pain or symptoms. The patient reports having swollen ankles about a month ago, but states that they no longer are swollen. 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 He states that Dr. Aguero also believes that he has inflammation in his airway and put him on prednisone in July at 20 mg and told the patient to increase the dose as needed. The patient states that he now take about 30 or 40 mg of prednisone each day, but states that he feels it does not help his symptoms much. The patient also states that he has a running order of azithromycin and doxycycline from Dr. Marie for whenever he feels like he has an infection in his lungs. The patient states that he is a previous smoker. Source of History: patient, spouse/significant other Onset: yesterday Position: chest (shortness of breath ) Quality: other ("tightness" and "dry and scratchy" ) Timing: waxes/wanes Modifying Factors (Worsening): exertion Associated Symptoms: + fatigue, No abdominal pain Note: additional symptoms: coughing up thin and greenish brown mucus and hot flashes Review of Systems See HPI for pertinent positives and negatives. A total of ten systems were reviewed and were otherwise negative. Past Medical & Surgical Medical Problems: (1) COPD (chronic obstructive pulmonary disease) Family History No pertinent family history Social History Smoking Status: Never Smoker Drug Use: none Marital Status: Housing Status: lives with family Occupation Status: employed Current/Historical Medications Scheduled Amitriptyline Hcl (Elavil), 50 MG PO HS Doxycycline Hyclate (Vibramycin), 100 MG PO BID Prednisone Tab (Prednisone), 10 MG PO QID Scheduled PRN Albuterol Sulfate (Proair Respiclick), 1 PUFF PO DIRECTED PRN for RESCUE Allergies Coded Allergies: Penicillins (Verified Allergy, Severe, Anaphylactic shock, 03/11/18) Amoxicillin (Unverified Allergy, Unknown, anaphylactic shock, 03/11/18) Physical Exam Vital Signs Date Time Temp Pulse Resp B/P (MAP) Pulse Ox O2 Delivery O2 Flow Rate FiO2 03/11/18 15:00 88 24 152/97 90 03/11/18 13:36 90 19 154/101 93 Nasal Cannula 4.0 03/11/18 12:56 87 Room Air 03/11/18 12:36 88 03/11/18 12:31 87 Room Air 03/11/18 12:31 92 Nasal Cannula 4.0 03/11/18 12:18 36.6 89 18 134/74 91 Room Air Physical Exam GENERAL: Awake, alert, well-appearing, in no distress. Barrel-chested. Obese abdomen. HENT: Normocephalic, atraumatic. Oropharynx unremarkable. EYES: Normal conjunctiva. Sclera non-icteric. NECK: Supple. No nuchal rigidity. RESPIRATORY: Slight expiratory wheeze. CARDIAC: Normal rate. Normal rhythm. Extremities warm and well perfused. GI: Soft, non-distended. No tenderness to palpation. No rebound or guarding. No masses. RECTAL: Deferred. MUSCULOSKELETAL: Atraumatic. Chest examination reveals no tenderness. There is no CVA tenderness to palpation. LOWER EXTREMITIES: Calves are equal size bilaterally and non-tender. No edema NEURO: Normal sensorium. No sensory or motor deficits noted. No facial droop. SKIN: Warm and dry. No rash or jaundice noted. Medical Decision & Procedures ER Provider Diagnostic Interpretation: Radiology results as stated below per my review and radiologist interpretation: CHEST 2 VIEWS ROUTINE CLINICAL HISTORY: EVALUATE RESPIRATORY DISTRESS.DYSPNEA dyspnea COMPARISON STUDY: 10/13/2016 FINDINGS: Chronic interstitial and fibrotic change. Moderate emphysematous change. No acute process. IMPRESSION: Emphysematous and chronic parenchymal fibrosis. No acute process. The above report was generated using voice recognition software. It may contain grammatical, syntax or spelling errors. Electronically signed by: Craig Bryan M.D. 03/11/2018 1:23 PM Dictated Date/Time: 03/11/2018 1:23 PM Laboratory Results 03/11/18 12:50 Red Blood Count 5.43, Mean Corpuscular Volume 91.7, Mean Corpuscular Hemoglobin 30.2, Mean Corpuscular Hemoglobin Concent 32.9, Mean Platelet Volume 11.3, Neutrophils (%) (Auto) 84.0, Lymphocytes (%) (Auto) 6.6, Monocytes (%) (Auto) 8.2, Eosinophils (%) (Auto) 0.8, Basophils (%) (Auto) 0.1, Neutrophils # (Auto) 10.00, Lymphocytes # (Auto) 0.78, Monocytes # (Auto) 0.97, Eosinophils # (Auto) 0.10, Basophils # (Auto) 0.01 03/11/18 12:50 Test 03/11/18 12:50 White Blood Count 11.90 K/uL (4.8-10.8) Red Blood Count 5.43 M/uL (4.7-6.1) Hemoglobin 16.4 g/dL (14.0-18.0) Hematocrit 49.8 % (42-52) Mean Corpuscular Volume 91.7 fL (80-100) Mean Corpuscular Hemoglobin 30.2 pg (25-34) Mean Corpuscular Hemoglobin Concent 32.9 g/dl (32-36) Platelet Count 160 K/uL (130-400) Mean Platelet Volume 11.3 fL (7.4-10.4) Neutrophils (%) (Auto) 84.0 % Lymphocytes (%) (Auto) 6.6 % Monocytes (%) (Auto) 8.2 % Eosinophils (%) (Auto) 0.8 % Basophils (%) (Auto) 0.1 % Neutrophils # (Auto) 10.00 K/uL (1.4-6.5) Lymphocytes # (Auto) 0.78 K/uL (1.2-3.4) Monocytes # (Auto) 0.97 K/uL (0.11-0.59) Eosinophils # (Auto) 0.10 K/uL (0-0.5) Basophils # (Auto) 0.01 K/uL (0-0.2) RDW Standard Deviation 45.9 fL (36.4-46.3) RDW Coefficient of Variation 13.7 % (11.5-14.5) Immature Granulocyte % (Auto) 0.3 % Immature Granulocyte # (Auto) 0.04 K/uL (0.00-0.02) D-Dimer < 190 ug/L FEU (0-500) Anion Gap 7.0 mmol/L (3-11) Est Creatinine Clear Calc Drug Dose 150.9 ml/min Estimated GFR () 118.3 Estimated GFR (Non- 102.1 BUN/Creatinine Ratio 16.6 (10-20) Calcium Level 8.3 mg/dl (8.5-10.1) Total Bilirubin 0.8 mg/dl (0.2-1) Aspartate Amino Transf (AST/SGOT) 14 U/L (15-37) Alanine Aminotransferase (ALT/SGPT) 43 U/L (12-78) Alkaline Phosphatase 59 U/L (45-117) Troponin I < 0.015 ng/ml (0-0.045) Pro-B-Type Natriuretic Peptide 55 pg/ml (0-900) Total Protein 6.8 gm/dl (6.4-8.2) Albumin 3.1 gm/dl (3.4-5.0) Globulin 3.7 gm/dl (2.5-4.0) Albumin/Globulin Ratio 0.8 (0.9-2) Lipase 95 U/L (73-393) Laboratory results reviewed by me Medications Administered Medications (Trade) Dose Ordered Sig/Cole Route Start Time Stop Time Status Last Admin Dose Admin Albuterol/ Ipratropium (Duoneb) 3 ml ONE STAT INH 03/11/18 14:20 03/11/18 14:21 DC 03/11/18 14:20 3 ML Doxycycline Hyclate (Vibramycin Cap) 100 mg NOW STAT PO 03/11/18 14:20 8/16/18 14:21 DC 03/11/18 14:20 100 MG ECG Per My Interpretation Indication: SOB/dyspnea Rate (beats per minute): 88 Rhythm: normal sinus Findings: no ectopy, other (normal intervals, no STEMI) Comparison ECG Date: 10/13/2016 Change: no significant change ED Course 1232: The patient was evaluated in room A9B. A complete history and physical exam was performed. 1420: Ordered Vibramycin Cap 100 mg PO and Duoneb 3 ml INH. 1515: I reevaluated the patient. Discussed results and discharge instructions: He verbalized understanding and agreement. The patient is ready for discharge. Medical Decision Differential diagnosis: Etiologies such as infections, reactive airway disease, pneumonia, pneumothorax , COPD, CHF, cardiac ischemia, pulmonary embolism, musculoskeletal, gastrointestinal, as well as others were entertained. Patient presents complaining of some worsening shortness of breath waxing and waning over the past month. Long history of lung issues. Currently on chronic steroids. 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 Intermittently uses oxygen. States some generalized muscular discomfort but denies thomas chest pain. Little bit of tightness. Tried nebulizers at home without improvement. States this does feel like prior pneumonia. No leg swelling. Doubt CHF exacerbation. Lower suspicion for ACS but EKG and troponin were completed. Doubt hepatitis or pancreatitis. Slight wheeze on exam. Seems less likely to be PE but d-dimer was sent. Benign abdomen. Patient does have mild looks a dose of 11.9 difficult to interpret given his chronic steroid use. D-dimer is negative. Negative troponin and proBNP. X-ray with chronic changes without acute lobar pneumonia. Likely bronchitis on top of his chronic lung issues. Given his chronic bronchiectasis believe this may be early bronchitis. Given a DuoNeb here. Recommended that he continue to follow closely with his regular doctor and pulmonology. Has nebulizers and oxygen at home. Given his history and symptoms recommend course of doxycycline, continue his steroids, follow-up with pulmonology, and regular use of his oxygen at home. Medication Reconcilliation Current Medication List: was personally reviewed by me Blood Pressure Screening Patient's blood pressure: Elevated blood pressure Blood pressure disposition: Referred to PCP Impression Primary Impression: Bronchitis Additional Impression: COPD exacerbation Scribe Attestation The scribe's documentation has been prepared under my direction and personally reviewed by me in its entirety. I confirm that the note above accurately reflects all work, treatment, procedures, and medical decision making performed by me. Departure Information Dispostion Home / Self-Care Prescriptions Doxycycline Hyclate (VIBRAMYCIN) 100 Mg Cap 100 MG PO BID for 7 Days, #14 CAP Prov: Luis Felipe Valera M.D. 03/11/18 Referrals Roque Marie Jr,D.O. (PCP) Forms HOME CARE DOCUMENTATION FORM, IMPORTANT VISIT INFORMATION, WORK / SCHOOL INSTRUCTIONS Patient Instructions My [facility] Additional Instructions Please utilize the prescribed doxycycline. Be aware that it may cause an increased light sensitivity and sunburn issue. Please use your oxygen regularly especially with exertion. Continue your steroids at home. Recommend another trial of your nebulizers at this point. You need follow-up with pulmonology and would also recommend follow-up within the week with your regular primary care physician. If at any time you have worsening or concerns please feel free to return here for reevaluation. Problem Qualifiers
[2018-03-11 13:03] LABS: BASO % 0.1 %; BASO ABS # 0.01 K/uL (0-0.2); EOS % 0.8 %; HEMATOCRIT 49.8 % (42-52); HEMOGLOBIN 16.4 g/dL (14.0-18.0); IG# 0.04 K/uL (0.00-0.02); LYMPH % 6.6 %; LYMPH ABS # 0.78 K/uL (1.2-3.4); MEAN CELL VOLUME 91.7 fL (80-100); MEAN CORPUSCULAR HEMOGLOBIN 30.2 pg (25-34); MEAN CORPUSCULAR HGB CONC 32.9 g/dl (32-36); MEAN PLATELET VOLUME 11.3 fL (7.4-10.4); MONO % 8.2 %; MONO ABS # 0.97 K/uL (0.11-0.59); PLATELET COUNT 160 K/uL (130-400); RED CELL DISTRIBUTION WIDTH CV 13.7 % (11.5-14.5); RED CELL DISTRIBUTION WIDTH SD 45.9 fL (36.4-46.3)
--- NOTE | 2018-03-11 13:25 | DIAGNOSTIC IMAGING REPORT ---
CHEST 2 VIEWS ROUTINE CLINICAL HISTORY: EVALUATE RESPIRATORY DISTRESS.DYSPNEA dyspnea COMPARISON STUDY: 10/13/2016 FINDINGS: Chronic interstitial and fibrotic change. Moderate emphysematous change. No acute process. IMPRESSION: Emphysematous and chronic parenchymal fibrosis. No acute process. The above report was generated using voice recognition software. It may contain grammatical, syntax or spelling errors. Electronically signed by: Craig Bryan M.D. 03/11/2018 1:23 PM Dictated Date/Time: 03/11/2018 1:23 PM
[2018-03-11 13:27] LABS: ALBUMIN 3.1 gm/dl (3.4-5.0); ALKALINE PHOSPHATASE 59 U/L (45-117); ALT/SGPT 43 U/L (12-78); AST/SGOT 14 U/L (15-37); BLOOD UREA NITROGEN 12 mg/dl (7-18); CALCIUM 8.3 mg/dl (8.5-10.1); CARBON DIOXIDE 29 mmol/L (21-32); CREATININE 0.72 mg/dl (0.60-1.40); GLUCOSE 189 mg/dl (70-99); LIPASE 95 U/L (73-393); POTASSIUM 3.6 mmol/L (3.5-5.1); SODIUM 138 mmol/L (136-145); TOTAL PROTEIN 6.8 gm/dl (6.4-8.2)
[2018-03-11] MEDS ORDERED: PRED10TA PO (13:59)
[2018-03-11] MEDS ORDERED: DOXYCYCLINE HYCLATE 100 MG CAP PO STA (14:20)
[2018-03-11] MEDS ORDERED: ALBUT/IPRATROP 3MG/0.5MG NEB 3 ML VIAL INH STA (14:20)
[2018-03-11] MEDS ORDERED: DOXY100C PO (14:25)
[2018-03-11 15:00] VITALS: BP 152/97; PULSE 88; O2SAT 90
== END 2018-03-11 15:19 | disposition home or self-care (01) ==
LOC: C.EDB 12:15 → C.EDA 15:19
DX: J40 Bronchitis, not specified as acute or chronic (principal); J44.0 Chronic obstructive pulmonary disease with (acute) lower respiratory infection; Z79.52 Long term (current) use of systemic steroids; Z88.0 Allergy status to penicillin

== ENCOUNTER 2025-05-23 12:03 | Observation (INO) ==
--- NOTE | 2025-05-19 11:38 | Anesthesiology Consultation ---
Date of Service May 19, 2025 Assessment & Plan (1) Encounter for pre-operative examination: Chart Review Chart Review: Acceptable Risk for Surgery (pending DOS EKG and CXR and anesthesiologist evaluation DOS ) and Patient NOT seen in Pre Admission Testing - Check EKG and CXR stat DOS (both not done in the past year) - Check BSG AM DOS -Infectious Disease screening: Per PAT nursing assessment on 05/19/25. No known infectious disease contacts in past 10 days or current infectious disease symptoms. No recent travel outside the country. Pulmonary visit 05/09/25= "... severe, end stage COPD... routine follow up... continue Trelegy, Daliresp, and as needed nebulizers... declines pulmonary rehab... discussed referral for lung transplant however the patient would like to hold off for now... Hypoxemic respiratory failure: Continue supplemental oxygen titrated to keep saturations at or above 88%... " History Surgery Operation Date: 05/23/25 13:00 Proposed Procedures p Right Ankle Open Reduction Internal Fixation Bimalleolar Ankle Fracture, Possible Syndesmosis - Gavin Roy DO Height/Weight Height: 5 ft 10 in Weight: 103.419 kg Allergies Allergy/AdvReac Type Severity Reaction Status Date / Time Penicillins Allergy Unknown see notes Verified 05/19/25 10:22 Medications Home Medications Medication Instructions Recorded Confirmed Last Taken nebulizer accessories #1 ea 03/31/23 05/04/25 Unknown nebulizers #1 ea 03/31/23 05/04/25 Unknown albuterol sulfate 90 mcg/actuation 2 puff inhalation Q6H PRN 07/07/23 05/19/25 Unknown aerosol inhaler shortness of breath or wheezing #3 Inhalers blood sugar diagnostic (OneTouch #100 strips 03/07/24 05/04/25 Unknown Verio test strips) fluticasone fur. 100 mcg-umeclid 1 inh inhalation DAILY 90 days 02/08/25 05/19/25 Unknown 62.5 mcg-vilant 25 mcg #180 ea inhalat.powder (Trelegy Ellipta) Oxygen Home #1 ea 04/11/25 05/04/25 Unknown oxycodone 5 mg tablet 5 mg PO TID PRN pain #15 tabs 05/11/25 05/19/25 Unknown amitriptyline 50 mg tablet 0 mg PO UD PRN Sleep 05/19/25 05/19/25 Unknown empagliflozin 25 mg tablet 25 mg PO QAM 05/19/25 05/19/25 Unknown (Jardiance) ibuprofen 200 mg tablet (Advil) 200 mg PO Q4H PRN Pain 05/19/25 05/19/25 Unknown ipratropium 0.5 mg-albuterol 3 mg 3 ml inhalation UD PRN 05/19/25 05/19/25 Unknown (2.5 mg base)/3 mL nebulization copd,emphysema soln roflumilast 500 mcg tablet 500 mcg PO HS 05/19/25 05/19/25 Unknown Past Medical History Medical History (Updated 05/19/25 @ 11:34 by Geraldine Crockett PA-C) Arthritis of both hips recent dx per pt/following pain mgmt. Chronic respiratory failure with hypercapnia on continuous oxygen hypercapnia resolved per pulm note 05/09/25 COPD (chronic obstructive pulmonary disease) per pt mainly controlled with current medication and oxygen use. Mostly flares with activity per pt, no issues with daily activity. Diabetes Dyslipidemia borderline Emphysema lung Fatty liver History of COVID-19 09/05/19 , pcr test, not hosp; fatigue>resolved. History of diverticulosis no idea per pt Humoral immunodeficiency On home oxygen therapy 3L continuous via n/c Sleep apnea hx bipap use/machine was recalled - no use since approx 2019. Past Family History Family History Father Lung cancer Sister COPD (chronic obstructive pulmonary disease) Brother Lung cancer Brain cancer Brother Leukemia Denies family history of Ovarian cancer Prostate cancer Breast cancer Colorectal cancer Past Surgical History Surgical History History of bronchoscopy multiple History of left knee surgery x1, hx injury. History of right knee surgery x3 total, 1 was arthroscopy. Hx of colonoscopy Hx of sinus surgery S/P arthroscopic knee surgery x1 Social History Smoking Status: Former smoker Do You Dip or Chew Tobacco: No Smoking End Date: 30 yrs ago Hx Alcohol Use: Yes Alcohol type: beer alcohol intake frequency: other Alcohol Intake Frequency Comment: 3-4 on the weekends maybe substance use type: does not use Lab Results Anesthesia Preop Results Results Anesthesia Widget: WBC 11.07 K/ul (4.8-10.8) H 05/11/25 Hgb 15.1 g/dl (14.0-18.0) 05/11/25 Hct 46.4 % (42.0-52.0) 05/11/25 Plt 187 K/uL (130-400) 05/11/25 Na 140 mmol/L (136-145) 05/11/25 K 3.8 mmol/L (3.5-5.1) 05/11/25 Cl 104 mmol/L (98-107) 05/11/25 CO2 24 mmol/L (21-32) 05/11/25 BUN 11 mg/dl (6-23) 05/11/25 Creat 0.49 mg/dl (0.6-1.4) L 05/11/25 Glucose Level 164 mg/dl (70-99(Fasting)) H 05/11/25 Testing Laboratory Results 03/01/25= HGB A1C: 7.9 Echocardiogram Date: 02/26/22 EF: 50-55% LV Function: normal RWMA: + none Other Findings: + diastolic dysfunction (Grade I ); no LVH Valvular Disease: + no significant valvular disease RV systolic pressure is normal
[~2025-05-23 12:03] MED LIST changes: -ADVIN50/60 INH; -ALBU18002 PO; -AMT50 PO; -AZIT250T PO; +BUPIVACAINE 0.25% PF 30 ML VIAL ONE; +BUPIVACAINE 0.5 % 5 MG/1 ML MPF 30ML VIAL ONE; +BUPIVACAINE 0.5 % 5 MG/1 ML PF 10ML VIAL ONE; -CYM/30 PO; -DOXY-300 PO; -GABA-113 PO; -OMEP20TA74 PO; -PHEN37.585 PO; -PRED20TA PO; -ROFL1TAB5 PO; +ROPIVACAINE 0.5% 5 MG/ML 30 ML VIAL ONE; -TOPI25TA99 PO
--- NOTE | 2025-05-23 12:07 | History & Physical Report ---
Date of Service May 23, 2025 Assessment & Plan (1) Ankle fracture: Encounter type: initial encounter Fracture type: closed Laterality: right Qualified Code(s): S82.891A - Other fracture of right lower leg, initial encounter for closed fracture (2) Dyslipidemia due to type 2 diabetes mellitus: (3) End stage COPD: (4) Hepatic steatosis: (5) Dependent edema: (6) Diabetes mellitus: (7) Emphysema of lung: (8) Obstructive sleep apnea: (9) Steroid dependence: (10) On home oxygen therapy: (11) Sleep apnea: (12) Fatty liver: Plan Bob is a 64-year-old gentleman who appears much older than stated age and he was quite medically complex and ill. He presented to the office about a week after a fall wherein he sustained a trimalleolar right ankle fracture. In the office, it was discovered that his ankle joint was poorly reduced and as such we performed repeat closed reduction and splinting of his right ankle. Postreduction imaging demonstrated concentric ankle reduction. I had a long discussion with the patient regarding the nature of his injury. We discussed in great detail the pathoanatomy, pathophysiology, treatment options. I discussed with him that this ankle fracture does represent an unstable ankle variant and my recommendation is for operative management. Operative management would include open reduction internal fixation of the lateral malleolus, medial malleolus and potentially syndesmosis. The patient does have a posterior malleolus fracture, however given his medical comorbidities, I am not convinced that an additional incision around his ankle and the risk therein of wound healing complications and infection outweighs the benefits of open reduction internal fixation for the posterior malleolus. We did discuss in great detail the risks of the proposed surgery which include but are not limited to loss of life/limb, DVT/PE, incomplete relief of pain, infection, wound healing complications, nonunion, malunion, hardware complication, hardware failure, posttraumatic osteoarthrosis, need for additional surgery, skin necrosis, need for future coverage options. I did discuss with him that his surgical risks are higher than the general population due to his litany of medical comorbidities including his prior smoking history, current home oxygen use, current steroid use. He is at a higher risk for perioperative complications and he expressed understanding. The alternative surgical management be for nonoperative care. Nonoperative care would involve serial radiographs to ensure that the ankle mortise remains reduced with reduction being held via a splint and/or a cast. I do believe this carries with it a very high risk of posttraumatic osteoarthrosis of the ankle due to the instability of the ankle Mortise. After thorough discussion the risk, benefits and alternative surgical management, the patient is interested in pursuing operative care. When the patient presented to the office last week, his swelling was far too great so he was instructed on the importance of limb elevation. On today's examination, the patient's swelling has abated nicely and safe surgical passage is now obtainable. From an anesthesia standpoint, this patient is a very high risk as well. I did discuss this with the anesthesia team. Their plan is for a spinal anesthetic to decrease his amount of general anesthesia exposure. Given the patient's pulmonary function, I do believe that this is safest as well. I also believe that it is appropriate to admit the patient overnight for observation. He will be admitted postoperatively and the medical service will be consulted for medical comanagement. History of Present Illness Chief Complaint: right ankle fracture Primary Care Provider: Odilon Fitzgerald DO The patient is a 64-year-old gentleman who presents today for definitive management of his right ankle fracture. He initially presented to the emergency department with right ankle pain after he slipped and fell in his home. in the emergency department he was discovered to have sustained a trimalleolar right ankle fracture in addition to a small laceration on the medial aspect of his great toe. The wound on his great toe was irrigated and loosely approximated with sutures and his right ankle fracture was splinted. He presented to my office about a week after the date of injury. Upon presentation to the office, he was noted to have a subluxed his tibiotalar joint and as such we recommended repeat closed reduction. We were able to close reduce him and we discussed definitive operative plans. Patient has been nonweightbearing since the injury. He does have significant medical comorbidities including end-stage COPD, type 2 diabetes, dyslipidemia, anxiety disorder, on chronic home oxygen. Allergies Allergy/AdvReac Type Severity Reaction Status Date / Time Penicillins Allergy Unknown see notes Verified 05/23/25 12:01 Home Medications Medication Instructions Recorded Confirmed Type nebulizer accessories #1 ea 03/31/23 05/04/25 Rx nebulizers #1 ea 03/31/23 05/04/25 Rx albuterol sulfate 90 mcg/actuation 2 puff inhalation Q6H PRN 07/07/23 05/23/25 Rx aerosol inhaler shortness of breath or wheezing #3 Inhalers blood sugar diagnostic (OneTouch #100 strips 03/07/24 05/04/25 Rx Verio test strips) fluticasone fur. 100 mcg-umeclid 1 inh inhalation DAILY 90 days 02/08/25 05/23/25 Rx 62.5 mcg-vilant 25 mcg #180 ea inhalat.powder (Trelegy Ellipta) Oxygen Home #1 ea 04/11/25 05/04/25 Rx oxycodone 5 mg tablet 5 mg PO TID PRN pain #15 tabs 05/11/25 05/23/25 Rx amitriptyline 50 mg tablet 0 mg PO UD PRN Sleep 05/19/25 05/23/25 History empagliflozin 25 mg tablet 25 mg PO QAM 05/19/25 05/23/25 History (Jardiance) ibuprofen 200 mg tablet (Advil) 200 mg PO Q4H PRN Pain 05/19/25 05/23/25 History ipratropium 0.5 mg-albuterol 3 mg 3 ml inhalation UD PRN 05/19/25 05/23/25 History (2.5 mg base)/3 mL nebulization copd,emphysema soln roflumilast 500 mcg tablet 500 mcg PO HS 05/19/25 05/23/25 History ibuprofen 200 mg tablet (Advil) 200 mg PO Q6H PRN Pain 05/23/25 05/23/25 History Past Med/Surg History Problem List Ankle fracture (Acute) Pain of right hip Sacroiliitis Night sweats Productive cough Dyslipidemia due to type 2 diabetes mellitus Myofascial pain Obesity End stage COPD Encounter for pre-operative examination Hepatic steatosis see hepatic MRI November 2020 Dependent edema Diabetes mellitus Anxiety disorder due to general medical condition with panic attack Steroid dependence (Chronic) Sacrococcygeal pain (Chronic) injured coccyx a few years ago; still occasionally has pain Lumbar facet joint syndrome (Chronic) 80-90% improved status post left L5 and S1 medial branch radio frequency ablation 12/03/2017 Emphysema of lung (Chronic) Nocturnal hypoxemia (Chronic) Obstructive sleep apnea (Chronic) bipap-"machine has been recalled" Diverticulosis (Chronic) Dyspepsia (Chronic) COPD (chronic obstructive pulmonary disease) (Chronic) daily inh and prn, and nebulizer Medical History Chronic respiratory failure with hypercapnia on continuous oxygen hypercapnia resolved per pulm note 05/09/25 Humoral immunodeficiency History of diverticulosis no idea per pt Dyslipidemia borderline Diabetes Arthritis of both hips recent dx per pt/following pain mgmt. Fatty liver Sleep apnea hx bipap use/machine was recalled - no use since approx 2019. Emphysema lung COPD (chronic obstructive pulmonary disease) per pt mainly controlled with current medication and oxygen use. Mostly flares with activity per pt, no issues with daily activity. History of COVID-19 09/05/19 , pcr test, not hosp; fatigue>resolved. On home oxygen therapy 3L continuous via n/c Surgical History History of right knee surgery x3 total, 1 was arthroscopy. History of left knee surgery x1, hx injury. Hx of colonoscopy Hx of sinus surgery S/P arthroscopic knee surgery x1 History of bronchoscopy multiple Family History Father Lung cancer Sister COPD (chronic obstructive pulmonary disease) Brother Lung cancer Brain cancer Brother Leukemia Denies family history of Ovarian cancer Prostate cancer Breast cancer Colorectal cancer Social History Smoking Status: Former smoker Tobacco Type: Cigarettes Age Started Using Tobacco: 10; Age Quit Using Tobacco: 36; packs per day: 1; Smoking End Date: 30 yrs ago; Second Hand Exposure: No; Do You Dip or Chew Tobacco: No; Hx Alcohol Use: Yes Alcohol type: beer Alcohol Intake Frequency: 4 or More x per/Week Preferred Language: Syriac Communication Ability: Effective Visual Impairment: Diminished Hearing Ability: Hard of Hearing Jack Frame Tender Required: No Beliefs That Will Affect Care: None marital status: Current Living Situation: Spouse current occupational status: retired Feels Safe at Home: Yes Childhood Exposure to Second-Hand Smoke: Yes Diet: regular caffeine: Yes Dental Care, Regularly: Yes Physical Activity Frequency: Does not Exercise Seatbelt Use: sometimes Sunscreen Use: No Assistive Devices: Brace/Splint/Immobilizer, Oxygen - Continuous and Other Assistive Devices Comment: 3L, readers, knee scooter, right ankle splint Review of Systems All systems reviewed & are unremarkable except as noted in HPI & below Physical Exam Physical Exam: On physical examination today, the patient splint removed and skin examined. There is a positive wrinkle sign noted. No open wounds appreciated about the ankle. The small linear laceration on the medial aspect of the patient's great toe is well-approximated and sutures are ready to be removed. Results & Data Diagnostic Findings X-rays and CT scan of the right ankle personally interpreted and reviewed. These demonstrate a trimalleolar right ankle fracture with a comminuted lateral malleolus, transverse medial malleolus and comminuted posterior malleolus that involves less than 25% of the articular surface.
--- NOTE | 2025-05-23 12:31 | XRay Report ---
XR chest 2V PA/lateral CLINICAL HISTORY: preop order COMPARISON STUDY: 01/28/2022 FINDINGS: Heart size and pulmonary vasculature are normal. Stable emphysema. No consolidation or pleu ral effusion seen. IMPRESSION: No acute findings. ACT 112: Negative or not required by law. Electronically signed by: Hung Najera M.D. 05/23/2025 12:30 PM
[2025-05-23] MEDS ORDERED: MIDAZOLAM HCL 1 MG/ML 2ML VIAL ONE (12:56)
[2025-05-23] MEDS ORDERED: PROPOFOL IV EMULSION 10 MG/ML 20 ML VIAL IV ONE (12:56)
[2025-05-23] MEDS ORDERED: LIDOCAINE 2% 2 ML VIAL/AMP(20MG/ML) INFIL ONE (12:56)
[2025-05-23] MEDS ORDERED: ATROPINE SULFATE 0.1 MG/ML 10ML SYR IV PRN (13:11)
[2025-05-23] MEDS ORDERED: ONDANSETRON INJ 2 MG/ML 2 ML VIAL IV PRN ×2 (13:11→16:56)
[2025-05-23] MEDS ORDERED: ALBUT/IPRATROP 3MG/0.5MG NEB 3 ML VIAL INH PRN ×2 (13:11→17:01)
[2025-05-23] MEDS: ALBUT/IPRATROP 3MG/0.5MG NEB 3 ML VIAL NEB STA (13:19)
[2025-05-23] MEDS: LR 15ML/HR IV SCH (13:31)
[2025-05-23] MEDS ORDERED: KETAMINE HCL 10MG/ML SYR ONE (14:06)
[2025-05-23] MEDS ORDERED: GLYCOPYRROLATE 0.2 MG/ML VIAL ONE (14:10)
[2025-05-23] MEDS ORDERED: DexMEDEtomidine HCL IV 100 MCG/ML VIAL IV ONE (14:24)
[2025-05-23] MEDS: BUPIVACAINE 0.5 % 5 MG/1 ML MPF 30ML VIAL ONE (14:26)
--- NOTE | 2025-05-23 15:21 | Electrocardiogram Report ---
Test Reason : Blood Pressure : */* mmHG Vent. Rate : 92 BPM Atrial Rate : 92 BPM P-R Int : 166 ms QRS Dur : 96 ms QT Int : 362 ms P-R-T Axes : 84 71 69 degrees QTcB Int : 447 ms Normal sinus rhythm Normal ECG When compared with ECG of 29-Jan-2022 09:04, No significant change was found Confirmed by Yair Crowe ([id number]) on 05/23/2025 3:21:02 PM Referred By: Gavin Roy Confirmed By: Yair Crowe
[2025-05-23] MEDS: VANCOMYCIN HCL 1000MG/20ML VIAL ONE (15:41)
[2025-05-23] MEDS ORDERED: MAGNESIUM HYDROXIDE SUSP 30 ML UDC PO PRN (16:56)
[2025-05-23] MEDS ORDERED: METOCLOPRAMIDE HCL INJ 5 MG/ML 2 ML VIAL IV PRN (16:56)
[2025-05-23] MEDS ORDERED: NALOXONE HCL 0.4 MG/1 ML VIAL/CARP IV PRN (16:56)
[2025-05-23] MEDS ORDERED: NO NSAIDS SCH (17:00)
[2025-05-23] MEDS ORDERED: AMITRIPTYLINE HCL 50 MG TAB PO PRN (17:01)
[2025-05-23] MEDS ORDERED: ALBUTEROL HFA 8 GM INHALER INH PRN (17:01)
--- NOTE | 2025-05-23 17:06 | Operative Report ---
Post Operative Report Pre & Post Diagnosis Operation Date: 05/23/25 13:00 Pre-Op Diagnosis: 1. Right ankle fracture, trimalleolar 2. Osteoporosis 3. Dyslipidemia due to type 2 diabetes mellitus: 4. End stage COPD: 5. Hepatic steatosis: 6. Dependent edema: 7. Diabetes mellitus: 8. Emphysema of lun. Obstructive sleep apnea: 10. Steroid dependence: 11. On home oxygen therapy: 12. Sleep apnea: 13. Fatty liver: Post-Op Diagnosis: 1. Right ankle fracture, trimalleolar 2. Osteoporosis 3. Dyslipidemia due to type 2 diabetes mellitus: 4. End stage COPD: 5. Hepatic steatosis: 6. Dependent edema: 7. Diabetes mellitus: 8. Emphysema of lun. Obstructive sleep apnea: 10. Steroid dependence: 11. On home oxygen therapy: 12. Sleep apnea: 13. Fatty liver: I identified the patient and participated in the time-out.: Yes Procedure Operation Date: 05/23/25 13:00 Actual Procedures p Right Ankle Open Reduction Internal Fixation Bimalleolar Ankle Fracture, Syndesmosis Screw, Physician Directed Fluoroscopy Greater Than One Hour, Application of Below the Knee Splint(Right) - Gavin Roy DO 1. Open reduction internal fixation right bimalleolar ankle fracture 2. Open reduction internal fixation right syndesmosis 3. Physician directed fluoroscopy greater than 1 hour 4. Application right below-knee splint Modifier 22: Due to the patient's significant osteopenia as well as his fragile skin and soft tissue planes secondary to his chronic steroid use, extra time, care, and attention was needed during all aspects of this case including soft tissue dissection and fracture reduction. Because of the extra time needed due to the patient's comorbidities, this surgical procedure took greater than an average case time for the same procedure would have. Surgeon Gavin Roy DO Family Resource Management Specialist None Estimated Blood Loss 25 Findings Consistent with Post-Op Diagnosis Specimens None Anesthesia Type MAC Regional Indications Bob is a 64-year-old gentleman who appears much older than stated age and he was quite medically complex and ill. He presented to the office about a week after a fall wherein he sustained a trimalleolar right ankle fracture. In the office, it was discovered that his ankle joint was poorly reduced and as such we performed repeat closed reduction and splinting of his right ankle. Postreduction imaging demonstrated concentric ankle reduction. I had a long discussion with the patient regarding the nature of his injury. We discussed in great detail the pathoanatomy, pathophysiology, treatment options. I discussed with him that this ankle fracture does represent an unstable ankle variant and my recommendation is for operative management. Operative management would include open reduction internal fixation of the lateral malleolus, medial malleolus and potentially syndesmosis. The patient does have a posterior mall eolus fracture, however given his medical comorbidities, I am not convinced that an additional incision around his ankle and the risk therein of wound healing complications and infection outweighs the benefits of open reduction internal fixation for the posterior malleolus. We did discuss in great detail the risks of the proposed surgery which include but are not limited to loss of life/limb, DVT/PE, incomplete relief of pain, infection, wound healing complications, nonunion, malunion, hardware complication, hardware failure, posttraumatic osteoarthrosis, need for additional surgery, skin necrosis, need for future coverage options. I did discuss with him that his surgical risks are higher than the general population due to his litany of medical comorbidities including his prior smoking history, current home oxygen use, current steroid use. He is at a higher risk for perioperative complications and he expressed understanding. The alternative surgical management be for nonoperative care. Nonoperative care would involve serial radiographs to ensure that the ankle mortise remains reduced with reduction being held via a splint and/or a cast. I do believe this carries with it a very high risk of posttraumatic osteoarthrosis of the ankle due to the instability of the ankle Mortise. After thorough discussion the risk, benefits and alternative surgical management, the patient is interested in pursuing operative care. When the patient presented to the office last week, his swelling was far too great so he was instructed on the importance of limb elevation. On today's examination, the patient's swelling has abated nicely and safe surgical passage is now obtainable. From an anesthesia standpoint, this patient is a very high risk as well. I did discuss this with the anesthesia team. Their plan is for a spinal anesthetic to decrease his amount of general anesthesia exposure. Given the patient's pulmonary function, I do believe that this is safest as well. I also believe that it is appropriate to admit the patient overnight for observation. He will be admitted postoperatively and the medical service will be consulted for medical comanagement. Description of Procedure After informed consent was obtained, the patient was correctly identified in the preoperative holding suite, the operative site was marked with the surgeon's initials, the date of surgery, and the word yes. The patient was then taken to the operative suite. The department of anesthesia administered a regional nerve block with MAC. The patient was transferred from the [facility] to the operative table. All bony prominences were well-padded. Briefing and timeout was performed. All implants were available and sterile at the time. BRIEFING AND DEBRIEFING: Pre and post operative briefing and debriefing was performed. Introductions were made, goals of the procedure were discussed, questions and concerns were addressed. The operative site markings were identified and appropriate. A time [id number] was performed, the patient's correct identity was confirmed and the correct operative sites were identified. The patients pre-operative antibiotic dosing and administration was confirmed along with other SCIP measures. The team was polled at the completion of the surgery and all team members were in agreement that the procedure was without complication, the counts are correct, the wound class was identified and suggestions for improvement were shared. Patient was transferred in supine fashion from the [facility] to the operative table. All bony prominences well-padded. A bump was placed under the ipsilateral right hip. An SCD placed on the left lower extremity and was turned down. Bilateral upper extremities were placed on arm boards. After adequate analgesia was achieved with the regional block and MAC, we began by cleansing the right lower extremity with a chlorhexidine scrub brush. The previously placed sutures in the medial aspect of the great toe were removed. After this, the right lower extremity was prepped and draped in standard sterile fashion using ChloraPrep. We began by marking out the anatomy of the distal fibula and the medial malleolus. We then exsanguinate the limb, raise the tourniquet to 300 mmHg. It remained elevated for 120 minutes and was not reinflated. We began by making a direct lateral approach to the distal fibula. We incised sharply through skin and dissected bluntly through subcutaneous tissue ensuring that we had a single layer of tissue between the skin and the periosteum. Distally, we would split the periosteum and raised periosteal flaps both anteriorly and posteriorly. The patient's distal fibular fracture was quite comminuted and this was clearly evident at this point. Distally, there was a somewhat transverse fracture with a lateral butterfly fragment. Given the fracture pattern of the distal fibula it became evident at this point that we would be unable to use any lag screws. We would then continue our dissection proximally raising flap both anteriorly and posteriorly off the fibula. In the proximal aspect of the incision in the anterior flap we would identify and protect the superficial peroneal nerve throughout the duration of the case. Next, we began our fracture preparation. Given the patient's severe osteopenia, great care was needed not to cause any additional iatrogenic fractures. We would gap open the multiple fracture sites and clean these with a dental pick, pituitary rongeur, knife. Once the fracture was adequately debrided, we would use a series of [id number] reduction clamps in order to reduce all fractures back to the proximal piece. We would check a reduction fluoroscopically and once we are satisfied, we would place multiple K wires across the multiple fractures maintaining our reduction. Next, we chose an appropriately sized distal fibula plate. Given the lateral butterfly fragment we opted for direct lateral fixation. Additionally, we chose a periarticular plate given the patient's severe osteopenia. Out of the Synthes set we selected the 6 hole 2.7 mm variable angle locking distal fibula lateral plate. We templated this down to the patient's distal fibula and once you are satisfied with the plates position we would secured in place using K wires. We checked its position fluoroscopically and once we are satisfied we began by drilling, measuring, and placing a 3.5 mm cortical screw in the proximalmost oblong hole. This achieved excellent compression of the plate down to bone. Then, we would place an additional cortical screw just proximal to this into the shaft and for the 2 proximalmost screws given the patient's osteopenia we opted to place locking screws. Next, distally, given the fracture pattern and the patient's osteopenia we would opt to place variable angle locking screws. We would place of the total of six 2.7 mm variable angle locking screws in the distal segment. This achieved excellent fixation. We then removed all provisional stabilization. We turned our attention towards the medial side. We would make a direct medial approach over the anterior colliculus of the medial malleolus centered over the fracture site. We dissected sharply through skin and then bluntly in the subcutaneous tissue in order to identify and protect the saphenous vein. This was retracted into the arterial flap. We would clean the periosteal edges off the fracture site both distally and proximally such that we could visualize the entire fracture. We then carried our dissection anteriorly so we could appreciate the reduction of the medial shoulder. We then debrided all organizing hematoma sharply using dental picks, pituitary rongeur's. Once were satisfied with our fracture preparation, we would use 2 times dental picks in order to obtain a provisional reduction of the medial malleolus. A single 0.045 mm K wire was then uses our reduction wire to stabilize this. We checked the reduction and position fluoroscopically and once we are satisfied we would use the wires for the 4.0 mm cannulated screws. We would opt to place 2 screws crossing the fracture at a 90 degree angle 1 on the anterior aspect of the anterior colliculus and 1 on the posterior aspect of the anterior colliculus. We would place a 44 mm partially-threaded 4.0 mm cannulated screw and a 42 mm 4.0 partially-threaded cannulated screw over these wires. These achieved excellent compression. All her provisional stabilization was then removed. At this point we would perform an external Tatian stress examination. As expected, considering we did not fix the posterior malleolus, we did see increased medial clear space widening. At this point we made the decision to perform an open reduction of the syndesmosis. We turned our attention back towards the lateral side. We carried our dissection of the distal fibula anteriorly until we could visualize the incisura. We dorsiflex the ankle to 90 degrees and then we visually inspected as the fibula was reduced back into the incisura. This reduction was confirmed fluoroscopically as well. Once were satisfied with its position, we would use the periarticular reduction clamp in order to maintain this position. While holding the ankle in 90 degrees of dorsiflexion and with the periarticular reduction clamp secured, we would drill Quadra cortically from the fibula into tibia and then measured this length. We selected the 3.5 x 55 mm screw and we placed this across the syndesmosis. Excellent stabilization was achieved. We removed the periarticular reduction clamp and repeated our external rotation stress examination. No medial clear space widening was noted. We then thoroughly irrigated both of our wounds. We would place 1 g of vancomycin powder split between the 2 wounds deep and then began our layered closure. We would close the periosteum on both sides with a running 3-0 Monocryl and then for the skin we would use a 4-0 nylon in a vertical Algar Donati fashion. We would place quarter inch brown Steri-Strips between each suture, pulled the tails through and then cover the wounds with Betadine soaked Adaptic, 4 x 4's fluffs, sterile Webril. We then applied a well-padded trilaminar AO trauma below-knee splint with the ankle held in neutral dorsiflexion while the splint cured. The patient tolerated this procedure well and was transferred to the PACU in stable condition. Prior to transportation to PACU, all counts were correct and a briefing was performed at the end of the case. Physician-directed fluoroscopy for greater than one hour was performed by myself to verify fracture alignment and the safe placement of all internal fixation. The final images saved to PACs showed views demonstrating satisfactory alignment of the fracture and stable internal fixation. Implant verification was performed by myself by reading and confirming the implant information on the packaging with the team before the sterile implants were opened. I was present for the entire procedure. Plan: Weight bearing status: Nonweightbearing right lower extremity Wound care: Keep splint clean and dry Range of motion: As tolerated of hip, knee, toes VTE Prophylaxis: 81 mg aspirin p.o. twice daily Antibiotics: perioperative Ancef Pain Control: Multimodal avoiding NSAIDs Vitamin D Replacement: Labs ordered Discharge Plan: Pending PT/OT/medical stability Follow Up: Upon discharge, the patient will follow-up myself in 2 weeks for wound check I attest to the content of the Intraoperative Record and any orders documented therein. Any exceptions are noted below.
--- NOTE | 2025-05-23 17:31 | Hospitalist Consultation ---
Date of Consultation May 23, 2025 Assessment & Plan (1) Trimalleolar fracture of right ankle: (2) Type 2 diabetes mellitus with hyperglycemia: (3) Stage 4 very severe COPD by GOLD classification: (4) Obstructive sleep apnea: (5) Chronic respiratory failure with hypoxia and hypercapnia: (6) Mixed hyperlipidemia: (7) Metabolic dysfunction-associated steatotic liver disease (MASLD): Plan In summary this is a 64-year-old male who is admitted by orthopedic surgery after right ankle open reduction and internal fixation; [facility] hospitalist group has been consulted for medical management of his multiple comorbidities. Trimalleolar fracture of right yahaira, s/p ORIF Postoperative management the patient's pain will be patient underwent surgical intervention on 05/23 without notable complication; defer pain management to the attending service #Type II diabetes mellitus with hyperglycemia Most recent hemoglobin A1c of 7.9% in 02/2025; glycemic target of preprandial less than 140 and random checks less than 180; we will withhold the patient's home medication regimen and initiate basal and prandial bolus insulin therapy during hospitalization - Start Lantus 18 units twice daily Correction factor 25 mg/dL/unit and carbohydrate ratio of 8 g Consult pharmacy for assistance with glycemic management during hospitalization #Chronic respiratory failure with hypoxia and hypercapnia // COPD Stage 4 // SHELDON, nonadherent to PPV therapy Continue oxygen supplementation as the patient has required in the outpatient setting considering their chronic respiratory failure with hypoxia and hyperc apnia; we will adjust O2 saturation goals based on their chronic hypercapnic respiratory failure; additionally we will start pulmonary toilet early during hospitalization to prevent any complications related to general anesthesia Maintain O2 saturation in the range of 88 to 92% to prevent CO2 retention Start incentive spirometry every 2 hours while awake Continue home inhaler regimen History of Present Illness Reason for Consultation: Post-operative medical management Requesting Physician: Gavin Roy DO Attending Physician: Gavin Roy DO History of Present Illness Mr. Avilez is a 64-year-old male whose active medical conditions include type 2 diabetes mellitus with multiple associated complications, hyperlipidemia, hypertension, obstructive sleep apnea, severe COPD among other chronic medical conditions who was admitted to the [facility] by orthopedic surgery after right ankle open reduction and internal fixation for a trimalleolar right ankle fracture. The patient remains "foggy" during my assessment however they were able to participate in a meaningful review of systems. Allergies Allergy/AdvReac Type Severity Reaction Status Date / Time Penicillins Allergy Unknown see notes Verified 05/23/25 12:01 Home Medications Medication Instructions Recorded Confirmed Type nebulizer accessories #1 ea 03/31/23 05/04/25 Rx nebulizers #1 ea 03/31/23 05/04/25 Rx albuterol sulfate 90 mcg/actuation 2 puff inhalation Q6H PRN 07/07/23 05/23/25 Rx aerosol inhaler shortness of breath or wheezing #3 Inhalers blood sugar diagnostic (OneTouch #100 strips 03/07/24 05/04/25 Rx Verio test strips) fluticasone fur. 100 mcg-umeclid 1 inh inhalation DAILY 90 days 02/08/25 05/23/25 Rx 62.5 mcg-vilant 25 mcg #180 ea inhalat.powder (Trelegy Ellipta) Oxygen Home #1 ea 04/11/25 05/04/25 Rx oxycodone 5 mg tablet 5 mg PO TID PRN pain #15 tabs 05/11/25 05/23/25 Rx amitriptyline 50 mg tablet 0 mg PO UD PRN Sleep 05/19/25 05/23/25 History empagliflozin 25 mg tablet 25 mg PO QAM 05/19/25 05/23/25 History (Jardiance) ibuprofen 200 mg tablet (Advil) 200 mg PO Q4H PRN Pain 05/19/25 05/23/25 History ipratropium 0.5 mg-albuterol 3 mg 3 ml inhalation UD PRN 05/19/25 05/23/25 History (2.5 mg base)/3 mL nebulization copd,emphysema soln roflumilast 500 mcg tablet 500 mcg PO HS 05/19/25 05/23/25 History ibuprofen 200 mg tablet (Advil) 200 mg PO Q6H PRN Pain 05/23/25 05/23/25 History Patient History Medical History (Updated 05/23/25 @ 17:21 by Justin Encarnacion DO) Steroid dependence No longer on chronic systemic steroids as of 2022 Humoral immunodeficiency History of diverticulosis no idea per pt History of COVID-19 09/05/19 , pcr test, not hosp; fatigue>resolved. Surgical History History of right knee surgery x3 total, 1 was arthroscopy. History of left knee surgery x1, hx injury. Hx of colonoscopy Hx of sinus surgery S/P arthroscopic knee surgery x1 History of bronchoscopy multiple Family History Father Lung cancer Sister COPD (chronic obstructive pulmonary disease) Brother Lung cancer Brain cancer Brother Leukemia Denies family history of Ovarian cancer Prostate cancer Breast cancer Colorectal cancer Social History Smoking Status: Former smoker Tobacco Type: Cigarettes Age Started Using Tobacco: 10; Age Quit Using Tobacco: 36; packs per day: 1; Smoking End Date: 30 yrs ago; Second Hand Exposure: No; Do You Dip or Chew Tobacco: No; Hx Alcohol Use: Yes Alcohol type: beer Alcohol Intake Frequency: 4 or More x per/Week Preferred Language: Sami Communication Ability: Effective Visual Impairment: Diminished Hearing Ability: Hard of Hearing Electric Mule Operator Required: No Beliefs That Will Affect Care: None marital status: Current Living Situation: Spouse current occupational status: retired Feels Safe at Home: Yes Childhood Exposure to Second-Hand Smoke: Yes Diet: regular caffeine: Yes Dental Care, Regularly: Yes Physical Activity Frequency: Does not Exercise Seatbelt Use: sometimes Sunscreen Use: No Assistive Devices: Brace/Splint/Immobilizer, Oxygen - Continuous and Other Assistive Devices Comment: 3L, readers, knee scooter, right ankle splint Review of Systems Review of Systems: Review of constitutional, cardiovascular, pulmonary, gastrointestinal, neurologic, musculoskeletal systems was unremarkable Physical Exam Physical Exam: General: Adult male in no acute distress Vital Signs: Reviewed; saturating greater than 95% on 3 L by nasal cannula HEENT: Tacky oral mucous membranes; pupils equally round and reactive to light Pulmonary: Symmetric chest wall excursion without restriction; severely diminished but present air movement throughout all lung ribeiro without any appreciable wheezing Cardiovascular: Regular rate and rhythm without murmurs, rubs, or gallops; right radial pulse 2+; no notable lower extremity edema; brisk capillary refill in the right lower extremity nailbeds Gastrointestinal: Protuberant, soft Neurologic: Absent sensation in the right lower extremity status post nerve block prior to procedure Results & Data Results & Data Vital Signs (Past 12 Hours) Vital Signs Temp Pulse Pulse Resp BP Pulse Ox O2 Del Method 05/23/25 16:56 36.3 C L 79 15 106/65 99 Oxymask 05/23/25 13:19 87 20 96 Nasal Cannula 05/23/25 12:38 Nasal Cannula 05/23/25 12:38 36.9 C 94 H 24 162/90 H 97 Nasal Cannula O2 Flow Rate 05/23/25 16:56 5 05/23/25 13:19 3 05/23/25 12:38 3 05/23/25 12:38 3 PG Care Time/CCT Total # of Minutes Spent Total Time Spent with Patient: Total time spent is greater than 50% in coordination of care (as documented) at patient's floor/unit and/or counseling patient: Coding Level of Care Code 58514 IN/OBS CONSULT LVL 4,60M Diagnoses Closed trimalleolar fracture of right ankle with routine healing, subsequent encounter S82.851D Encounter type: subsequent encounter Fracture healing: with routine healing Fracture type: closed Type 2 diabetes mellitus with hyperglycemia, without long-term current use of insulin E11.65 Diabetes mellitus medical terminologist insulin use: without medical terminologist use Stage 4 very severe COPD by GOLD classification J44.9 Obstructive sleep apnea G47.33 Chronic respiratory failure with hypoxia and hypercapnia J96.11; J96.12 Mixed hyperlipidemia E78.2 Metabolic dysfunction-associated steatotic liver disease (MASLD) K76.0 (1) Trimalleolar fracture of right ankle Encounter type: subsequent encounter Fracture healing: with routine healing Fracture type: closed Qualified Code(s): S82.851D - Displaced trimalleolar fracture of right lower leg, subsequent encounter for closed fracture with routine healing (2) Type 2 diabetes mellitus with hyperglycemia Diabetes mellitus medical terminologist insulin use: without detention use Qualified Code(s): E11.65 - Type 2 diabetes mellitus with hyperglycemia
[2025-05-23] MEDS ORDERED: TRELEGY 100 MCG INH SCH (17:45)
--- NOTE | 2025-05-23 17:46 | Anesthesiology Progress Note ---
Date of Service May 23, 2025 Anesthesia Post Procedure Vital Signs Vital Signs: Temp Pulse Pulse Resp BP Pulse Ox O2 Del Method 05/23/25 17:40 74 14 132/85 98 Nasal Cannula 05/23/25 17:25 97.7 F 79 14 133/79 97 Nasal Cannula 05/23/25 17:15 82 16 130/90 97 Oxymask 05/23/25 17:05 79 16 123/72 97 Oxymask 05/23/25 16:56 97.3 F L 79 15 106/65 99 Oxymask 05/23/25 13:19 87 20 96 Nasal Cannula 05/23/25 12:38 Nasal Cannula 05/23/25 12:38 98.4 F 94 H 24 162/90 H 97 Nasal Cannula O2 Flow Rate 05/23/25 17:40 3 05/23/25 17:25 3 05/23/25 17:15 5 05/23/25 17:05 5 05/23/25 16:56 5 05/23/25 13:19 3 05/23/25 12:38 3 05/23/25 12:38 3 Pain Intensity Right Foot: Pain Intensity: 6 Transfer of Care Handoff Completed per policy Notes Mental Status: alert / awake / arousable and participated in evaluation Patient Amnestic to Procedure: Yes Nausea / Vomiting: adequately controlled Pain: adequately controlled Airway Patency, RR, SpO2: stable & adequate BP & HR: stable & adequate Hydration State: stable & adequate Anesthetic Complications: no major complications apparent and Pt Satisfied with anesthetic care
[2025-05-23] MEDS ORDERED: PHARMACY GLYCEMIC MGMT CONSULT PRN (18:38)
[2025-05-23] MEDS ORDERED: DEXTROSE 50% 50 ML SYRINGE IV PRN (18:38)
[2025-05-23] MEDS ORDERED: GLUCOSE 40% GEL 15 GM TUBE PO PRN (18:38)
[2025-05-23] MEDS ORDERED: GLUCAGON FOR INJ 1 MG VIAL SQ PRN (18:38)
[2025-05-23] MEDS ORDERED: GLUCOSE 10 TAB/TUBE PO PRN (18:38)
[2025-05-23] MEDS ORDERED: CARBOHYDRATES FOR HYPOGLYCEMIA PO PRN (18:38)
[2025-05-23] MEDS: SODIUM CHLORIDE 0.9% 1,000 ML IV SCH (18:47)
--- NOTE | 2025-05-23 19:03 | Pharmacy Report ---
Pharmacy Glycemic Short Note 2 - Date of Service May 23, 2025 - Glycemic Short BSG Results (Last 24 hours): 05/23/25 05/23/25 13:06 17:00 POC Glucose 145 H 153 H OUTPATIENT ANTIDIABETIC REGIMEN: * Empagliflozin 25mg daily * HbA1c: 7.9% (03/01/2025) ASSESSMENT: * Bob is a 64 year old male with T2DM who presents to the hospital for an elective right ankle open reduction internal fixation procedure * Glucose values are 145 and 153 so far during his stay, which is within goal range * T2DM diet * Stressors: recent surgery * Will initiate Novolog mealtime coverage with around a stress level of 2, given he is only on one oral agent outpatient PLAN FOR INPATIENT GLYCEMIC CONTROL: * Hold outpatient oral diabetes medications * Basal insulin * Lantus - none * Bolus insulin * NovoLog per scale ACHS or Q6hrs while NPO * Goal Range: Low 120 mg/dL - High 160 mg/dL * Correction Factor: 25 mg/dL/unit * Nutritional / Prandial insulin per carb ratio of 1 unit per 10 grams CHO consumed
[2025-05-23] MEDS: FLUTICASONE FUROATE 100MCG 14 PUFFS/INHALER INH SCH (20:35)
[2025-05-23] MEDS: UMECLIDINIUM/VILANTEROL 62.5/25MCG 7 PUFFS/INHALER INH SCH (20:36)
[2025-05-23] MEDS: ASPIRIN 81 MG ECTAB PO SCH (20:40)
[2025-05-23] MEDS: SENNA 8.6 MG TAB PO SCH (20:40)
[2025-05-23] MEDS: DOCUSATE SODIUM 100 MG CAP PO SCH (20:40)
[2025-05-23] MEDS: ROFLUMILAST 500 MCG TAB PO SCH (20:41)
[2025-05-23] MEDS: INSULIN ASPART PER UNIT CHARGE SC SCH (20:42)
[2025-05-23] MEDS ORDERED: LANTUS PER UNIT CHARGE SQ SCH (21:00)
--- NOTE | 2025-05-24 08:14 | Fluoroscopy Report ---
FL ankle RT min 3V RTN CLINICAL HISTORY: RT ANKLE ORIF COMPARISON STUDY: 05/11/2025 FLUOROSCOPY TIME: 147 seconds FLUOROSCOPY IMAGES: 11 EXPOSURE DOSE: 6 mGy FINDINGS: Fluoroscopy was provided for internal fixation of the distal tibia and fibula. IMPRESSION: Intraoperative fluoroscopy. ACT 112: Negative or not required by law. Electronically signed by: Hung Najera M.D. 05/24/2025 8:13 AM
[2025-05-24] MEDS: MULTIVITAMIN TAB PO SCH (08:43)
[2025-05-24] MEDS ORDERED: NON-FORMULARY MEDICATION (Fluticasone-Umeclidin-Vilanter [Trelegy Ellipta] 100-62.5-25 mcg INH SCH (09:00)
--- NOTE | 2025-05-24 10:34 | Hospitalist Progress Note ---
Date of Service May 24, 2025 Assessment & Plan (1) Trimalleolar fracture of right ankle: (2) Type 2 diabetes mellitus with hyperglycemia: (3) Stage 4 very severe COPD by GOLD classification: (4) Obstructive sleep apnea: (5) Chronic respiratory failure with hypoxia and hypercapnia: (6) Mixed hyperlipidemia: (7) Metabolic dysfunction-associated steatotic liver disease (MASLD): Plan In summary this is a 64-year-old male who is admitted by orthopedic surgery after right ankle open reduction and internal fixation; [facility] hospitalist group has been consulted for medical management of his multiple comorbidities. # Trimalleolar fracture of right ankle, s/p ORIF Postoperative management the patient's pain will be patient underwent surgical intervention on 05/23 without notable complication; defer pain management to the attending service Patient is currently non weight bearing to RLE & will continue this status upon discharge. His current mobility limitation impairs the ability to participate in toileting, bathing, and dressing. The mobility limitation cannot be resolved by use of cane or walker. Bob is able to safely use a manual wheelchair. Patient's functional mobility can be resolved by the use of a manual wheelchair & patient can maneuver the chair independently. He does have the strength to maneuver the wheelchair. #Type II diabetes mellitus with hyperglycemia Most recent hemoglobin A1c of 7.9% in 02/2025 Outpatient regimen: Donna, was on Monjaro but discontinued due to inability to tolerate medication; was unable to tolerate Metformin secondary to adverse effects. Rec outpatient follow up w/ PCP upon discharge to re-discuss glycemic management options given elevation in his A1c Pharmacy following for assistance with glycemic management during hospitalizat ion #Chronic respiratory failure with hypoxia and hypercapnia // COPD Stage 4 // SHELDON, nonadherent to PPV therapy Baseline 3L of oxygen, please continue while inpatient. O2 goal range 88-92% to prevent CO2 retention. Incentive spirometry Continue home inhalers. DVT prophylaxis: 81 mg ASA BID Code: full Admission and Anticipated Discharge Date Admission Date: May 23, 2025 Supervising Physician Co-Signing Physician Notes The patient was not seen by me. The chart was reviewed. Case discussed with ALAYNA Gilbert. Agree with assessment and plan Subjective Bob was seen & examined this morning. He reports that he is doing okay today. States that overnight he was not given 3L of oxygen and was only on 1L of oxygen which caused him some SOB/dizziness upon waking. He reports this has resolved and his SOB is at baseline. Denies any CP. States he is unsure of his discharge plan. Physical Exam Physical Exam: General: NAD, VS: BP 117/71; P98; R20; T37C Resp: normal respiratory effort, lungs clear to auscultation CV: RRR, no murmur Extremities: no edema, R ankle w/ cast on Neuro: A&O x3 Skin: intact, no lesions noted Results & Data Results & Data Vital Signs (Past 12 Hours) Vital Signs Temp Pulse Resp BP Pulse Ox O2 Del Method O2 Flow Rate 05/24/25 07:10 37.0 C 98 H 20 117/71 93 Nasal Cannula 3 05/24/25 05:40 36.6 C 90 18 135/71 93 Room Air 05/24/25 01:42 36.6 C 98 H 16 157/68 H 94 Room Air PG Care Time/CCT Total # of Minutes Spent Total Time Spent with Patient: Total time spent is greater than 50% in coordination of care (as documented) at patient's floor/unit and/or counseling patient: Coding Level of Care Code 54239 SUB INP/OBS CARE 2/35MIN Diagnoses Closed trimalleolar fracture of right ankle with routine healing, subsequent encounter S82.851D Encounter type: subsequent encounter Fracture healing: with routine healing Fracture type: closed Type 2 diabetes mellitus with hyperglycemia, without long-term current use of insulin E11.65 Diabetes mellitus long-term insulin use: without long-term use Stage 4 very severe COPD by GOLD classification J44.9 Obstructive sleep apnea G47.33 Chronic respiratory failure with hypoxia and hypercapnia J96.11; J96.12 Mixed hyperlipidemia E78.2 Metabolic dysfunction-associated steatotic liver disease (MASLD) K76.0 (1) Trimalleolar fracture of right ankle Encounter type: subsequent encounter Fracture healing: with routine healing Fracture type: closed Qualified Code(s): S82.851D - Displaced trimalleolar fracture of right lower leg, subsequent encounter for closed fracture with routine healing (2) Type 2 diabetes mellitus with hyperglycemia Diabetes mellitus long-term insulin use: without long-term use Qualified Code(s): E11.65 - Type 2 diabetes mellitus with hyperglycemia
--- NOTE | 2025-05-24 11:44 | Orthopedic Progress Note ---
Date of Service May 24, 2025 Assessment & Plan (1) Ankle fracture: (2) Dyslipidemia due to type 2 diabetes mellitus: (3) End stage COPD: (4) Hepatic steatosis: (5) Dependent edema: (6) Diabetes mellitus: (7) Emphysema of lung: (8) Obstructive sleep apnea: (9) Steroid dependence: (10) On home oxygen therapy: (11) Sleep apnea: Plan 64-year-old gentleman doing well postoperatively #1 status post open duction internal fixation right ankle under MAC anesthesia. Patient notes the nerve block is still working but is starting to wear off. Medically, the patient did well overnight and seems to be stable for discharge home today. He has worked with PT and OT and is maintained nonweightbearing. He has appropriate follow-up scheduled. We will discharge him from the hospital today. Nonweightbearing right lower extremity. Aspirin 81 mg p.o. twice daily DVT prophylaxis. Avoid NSAIDs. Tylenol/oxycodone for pain control. Admission and Anticipated Discharge Date Admission Date: May 23, 2025 Julissa Rojas was seen & examined this morning. He reports that he is doing okay today. States that overnight he was not given 3L of oxygen and was only on 1L of oxygen which caused him some SOB/dizziness upon waking. He reports this has resolved and his SOB is at baseline. Denies any CP Review of Systems Review of Systems: All systems reviewed & are unremarkable except as noted in HPI & below Physical Exam Physical Exam: On physical examination, the patient's splint is clean dry and intact. He demonstrates intact EHL and FHL function. Sensation intact DPN, SPN, tibial nerve distributions. Results & Data Vital Signs (Past 12 Hours) Vital Signs Temp Pulse Resp BP Pulse Ox O2 Del Method O2 Flow Rate 05/24/25 07:10 37.0 C 98 H 20 117/71 93 Nasal Cannula 3 05/24/25 05:40 36.6 C 90 18 135/71 93 Room Air 05/24/25 01:42 36.6 C 98 H 16 157/68 H 94 Room Air (1) Ankle fracture Encounter type: initial encounter Fracture type: closed Laterality: right Qualified Code(s): S82.891A - Other fracture of right lower leg, initial encounter for closed fracture
--- NOTE | 2025-05-24 11:50 | Discharge Summary ---
Date of Service May 24, 2025 Admission HPI Per Admitting Provider Bob is a 64-year-old gentleman who appears much older than stated age and he was quite medically complex and ill. He presented to the office about a week after a fall wherein he sustained a trimalleolar right ankle fracture. In the office, it was discovered that his ankle joint was poorly reduced and as such we performed repeat closed reduction and splinting of his right ankle. Postreduction imaging demonstrated concentric ankle reduction. I had a long discussion with the patient regarding the nature of his injury. We discussed in great detail the pathoanatomy, pathophysiology, treatment options. I discussed with him that this ankle fracture does represent an unstable ankle variant and my recommendation is for operative management. Operative management would include open reduction internal fixation of the lateral malleolus, medial malleolus and potentially syndesmosis. The patient does have a posterior malleolus fracture, however given his medical comorbidities, I am not convinced that an additional incision around his ankle and the risk therein of wound healing complications and infection outweighs the benefits of open reduction internal fixation for the posterior malleolus. We did discuss in great detail the risks of the proposed surgery which include but are not limited to loss of life/limb, DVT/PE, incomplete relief of pain, infection, wound healing complications, nonunion, malunion, hardware complication, hardware failure, posttraumatic osteoarthrosis, need for additional surgery, skin necrosis, need for future coverage options. I did discuss with him that his surgical risks are higher than the general population due to his litany of medical comorbidities including his prior smoking history, current home oxygen use, current steroid use. He is at a higher risk for perioperative complications and he expressed understanding. The alternative surgical management be for nonoperative care. Nonoperative care would involve serial radiographs to ensure that the ankle mort ise remains reduced with reduction being held via a splint and/or a cast. I do believe this carries with it a very high risk of posttraumatic osteoarthrosis of the ankle due to the instability of the ankle Mortise. After thorough discussion the risk, benefits and alternative surgical management, the patient is interested in pursuing operative care. When the patient presented to the office last week, his swelling was far too great so he was instructed on the importance of limb elevation. On today's examination, the patient's swelling has abated nicely and safe surgical passage is now obta inable. From an anesthesia standpoint, this patient is a very high risk as well. I did discuss this with the anesthesia team. Their plan is for a spinal anesthetic to decrease his amount of general anesthesia exposure. Given the patient's pulmonary function, I do believe that this is safest as well. I also believe that it is appropriate to admit the patient overnight for observation. He will be admitted postoperatively and the medical service will be consulted for medical comanagement. Principal Diagnosis Right ankle fracture Discharge Exam On physical examination, the patient's splint is clean dry and intact. He demonstrates intact EHL and FHL function. Sensation intact DPN, SPN, tibial nerve distributions. Discharge Data Allergies Allergy/AdvReac Type Severity Reaction Status Date / Time Penicillins Allergy Unknown see notes Verified 05/23/25 12:01 Consultations 05/23/25 16:56 Consult Hospitalist Routine Procedures Performed Operation Date: 05/23/25 13:00 Actual Procedures p Right Ankle Open Reduction Internal Fixation Bimalleolar Ankle Fracture, Syndesmosis Screw, Physician Directed Fluoroscopy Greater Than One Hour, Application of Below the Knee Splint(Right) - Gavin Roy DO Ordered Studies 05/23/25 FL ankle RT min 3V RTN Routine 05/23/25 05:00 US - OR guided needle placemen Routine Hospital Course (1) Ankle fracture: (2) Dyslipidemia due to type 2 diabetes mellitus: (3) End stage COPD: (4) Hepatic steatosis: (5) Dependent edema: (6) Diabetes mellitus: (7) Emphysema of lung: (8) Obstructive sleep apnea: (9) Steroid dependence: (10) On home oxygen therapy: (11) Sleep apnea: Plan 64-year-old gentleman doing well postoperatively #1 status post open duction internal fixation right ankle under MAC anesthesia. Patient notes the nerve block is still working but is starting to wear off. Medically, the patient did well overnight and seems to be stable for discharge home today. He has worked with PT and OT and is maintained nonweightbearing. He has appropriate follow-up scheduled. We will discharge him from the hospital today. Nonweightbearing right lower extremity. Aspirin 81 mg p.o. twice daily DVT prophylaxis. Avoid NSAIDs. Tylenol/oxycodone for pain control. Total Time Total Time Spent Total Time Spent (In Minutes): 20 Discharge Plan Discharge Items Patient Disposition: Home - Self-Care Reason For Visit: Right Ankle Bimalleolar Ankle Fracture Discharge Diagnosis: Right ankle fracture Activity: Per Instructions section Lifting: None Bathing: Keep incision dry Weightbearing: Right non-weightbearing Non-emergency contact: Primary Care Provider and Surgeon Call non-emergency contact if: you have any medication questions, your pain is not controlled and your temperature is above 101 Follow-up/Referrals: Odilon Fitzgerald DO [Primary Care Provider] - Diet: Carb Consistent or DM2 Addtl Attending Provider Instructions: Nonweightbearing right lower extremity Keep splint clean and dry Keep limb elevated to decrease swelling Take aspirin 81 mg p.o. twice daily to decrease risk of blood clots Take Tylenol and oxycodone as needed for pain Follow-up in about 2 weeks as scheduled Call the office with any questions or concerns [phone] Pending Studies at Discharge: No Stand-Alone Forms: [facility], Smoking Cessation Medications and DC Order Prescriptions: Continued albuterol sulfate 90 mcg/actuation HFA aerosol inhaler 2 puff inhalation Q6H PRN (Reason: shortness of breath or wheezing) Qty: 3 1RF (DME) OneTouch Verio test strips Strip See Rx Instructions .ROUTE .COMPLEX Qty: 100 3RF Dose Instruction: USE TO TEST ONCE DAILY FOR DIABETES MELLITUS Rx Instructions: USE TO TEST ONCE DAILY FOR DIABETES MELLITUS Trelegy Ellipta 100-62.5-25 mcg blister with device 1 inh inhalation DAILY 90 Days Qty: 180 3RF (DME) Oxygen Home Liters Per Minute See Rx Instructions .Route Qty: 1 0RF Rx Instructions: As directed, 3L continuous oxycodone 5 mg tablet 5 mg PO TID PRN (Reason: pain) Qty: 15 0RF (DME) nebulizers Misc See Rx Instructions .Route Qty: 1 0RF Rx Instructions: As directed (DME) nebulizer accessories Misc See Rx Instructions .Route Qty: 1 0RF Rx Instructions: As directed ipratropium-albuterol 0.5 mg-3 mg(2.5 mg base)/3 mL solution for nebulization 3 ml inhalation UD PRN (Reason: copd,emphysema) Rx Instructions: INHALE THE CONTENTS OF 1 VIAL (3 ML) FOUR TIMES A DAY NEEDED FOR SHORTNESS OF BREATH amitriptyline 50 mg tablet 0 mg PO UD PRN (Reason: Sleep) Patient Comments: don't remember strength, haven't taken for long while Rx Instructions: TAKE 1 TABLET AT BEDTIME NEEDED FOR SLEEP roflumilast 500 mcg tablet 500 mcg PO HS Rx Instructions: TAKE 1 TABLET AT BEDTIME Jardiance 25 mg tablet 25 mg PO QAM Held ibuprofen [Advil] 200 mg Tablet 200 mg PO Q4H PRN (Reason: Pain) Hold Instructions: Resume on 04/26/26. ibuprofen [Advil] 200 mg Tablet 200 mg PO Q6H PRN (Reason: Pain) Hold Instructions: Resume on 04/26/26. Discharge Orders: Discharge Order (Routine); Ordered 05/24/25 Ordered By: Gavin Roy Admission Data Admit Date/Time: 05/23/25 16:56 Attending Provider: Gavin Roy Admit Provider: Gavin Roy Primary Care Provider: Odilon Fitzgerald Other Providers: Primitivo Bailey; Cristóbal Nix; Roque Pino; Odilon Mariscal; Gregorio Gunter Natalie B.; Latasha Gonzalez; Carol Wood; Karol Leonard; Jayden White; Margi Patel; Yair Kimble; Fred Kramer; Cristóbal Pagan; Irwin Weldon; Chan Nunez; Lorena Mendenhall; Lorena Mccauley; Aimee Chavez N; Sarah Coleman; Rehana Castro; Keenan Good; Eduardo Patel; Eliud Osei; Marisabel Quesada; Dara Howe; Severino Rosenbaum; Joseph Duggan; Zee Beard; Akosua Garcia; Katrina Silverman; Gavin Gusman; Melvin Hollis; Kati Perdomo; Orlando Villa; Bing Garrett; Lane Paula; Latesha Campbell; Chceo Mcmahan; Yuli Vargas; Pati Ruiz; Whitney Mcmahan; Vick Mclaughlin; Justin Encarnacion; Mode Morales A
[2025-05-24 11:57] VITALS: BP 126/69; PULSE 83; RESP 17; TEMP 98.2; O2SAT 95
== END 2025-05-24 16:58 | disposition home or self-care (01) ==
LOC: ASU 12:03 → PACUINP 12:03 → 3N 18:37